=== PATIENT | male | born 1995 | race Caucasian/White ===

== ENCOUNTER 2019-07-19 15:01 | Emergency (ER) | payer MEDICAID, SELFPAY ==
[2019-07-19 15:02] VITALS: BP 146/100; PULSE 102; RESP 16; TEMP 36.4; O2SAT 93; BMI 38.3
--- NOTE | 2019-07-19 15:34 | EKG12_ITS ---
Test Reason : PALPS Blood Pressure : / mmHG Vent. Rate : 102 BPM Atrial Rate : 102 BPM P-R Int : 160 ms QRS Dur : 090 ms QT Int : 354 ms P-R-T Axes : 084 002 -33 degrees QTc Int : 461 ms Sinus tachycardia Possible Left atrial enlargement Nonspecific T wave abnormality Abnormal ECG Confirmed by CLAIR IRVIN, VIKAS ([id number]), news assignment editor REBECCA PARK ([id number]) on 07/20/2019 9:25:33 AM Referred By: ANTONIA Confirmed By:VIKAS SELF MD
--- NOTE | 2019-07-19 15:37 | ED.DCSUM_ITS ---
- ER Visit Summary Date of Service: 07/19/19 Chief Complaint: Palpitations History of Present Illness: The patient is a 23 M who tells me that yesterday after smoking marijuana that he bought from a street dealer he began to experience a fluttering heart skipping sensation. This has been pretty much continuous since that time. This morning when he woke he felt short of breath. States he has a history of depression anxiety and bipolar disorder. He states that typically marijuana helps calm him down. Patient went to his primary care physician's office was noted that his heart rate was around 100 and his pulse ox was around 90 to 91% on room air. When asked what he did over the weekend the patient states that he pretty much drink heavily. He did work on Friday during the day. Physical Examination: Afebrile vital signs are stable. Noted heart rate in triage at 102. Gen: Well-nourished well-developed Head: Normocephalic atraumatic Eyes: Perrl EOMI ENT: TMs clear no rhinorrhea moist mucous membranes Neck: Supple no lymphadenopathy no JVD nontender CVS: Regular rate tachycardic rhythm no murmurs normal S1-S2 Respiratory: No distress clear to auscultation bilaterally chest nontender Abdomen: Soft nontender nondistended normal bowel sounds no masses Back: Nontender Extremity: Nontender no edema Skin: Normal color no rash Neuro: alert orientated ?3 CN II-XII intact normal strength sensation reflexes gait cerebellar Psych: Patient appears anxious does not make sense that he Test Results: EKG shows sinus tachycardia rate of 102. CBC chemistries were negative. Troponin negative d-dimer negative. Magnesium 2.2. TSH is 1.28. Chest x-ray is negative. Urine toxicology was obtained. Emergency Department Course and Treatment: Patient was placed on the monitor. He has had some heart rates down into the low 90s. His pulse ox has been in the mid 90s. At this point this could be a little holiday heart. Could he have ingested something from the marijuana that it was cut with or laced with that we are not detecting. At this point I do not see anything acutely wrong. Patient was encouraged to hydrate hydrate and stay away from any alcohol or cannabis. Impression: 1. Palpitations This note was generated with [employer] dictation software. It may contain incorrect words, spelling, and punctuation that were not noted in review of the chart prior to signing ED Disposition - Plan for ED Patient: Disposition: Home or Assisted Living Instructions: Palpitations Referrals: Bean Vale MD [Primary Care Provider] - 3-5 Days if not improving
--- NOTE | 2019-07-19 15:50 | RAD_ITS ---
STUDY: X-RAY CHEST REASON FOR EXAM: Male, 23 years old. Palpitations, shortness of breath TECHNIQUE: PA and lateral views of the chest. COMPARISON: None. FINDINGS: back padder leads are present. The lungs are clear and expanded. There is no demonstrated pleural abnormality. Normal size heart. Normal mediastinum and callie. Normal visualized pulmonary arteries. Normal visualized aortic arch and descending thoracic aorta. Normal visualized thoracic spine. Normal visualized ribs, clavicles, and shoulders. There is no demonstrated abnormality of the visualized soft tissue structures of the upper abdomen. RAD/Chest PA and Lateral IMPRESSION: Normal x-ray examination of the chest. Electronically Signed: Babatunde Miner MD at 16:19 EDT , Service support ,
[2019-07-19 16:01] VITALS: PULSE 111
[2019-07-19 16:02] LABS: Absolute Lymphocyte Count 1.75 X10^3/uL (0.83-4.51); Absolute Neutrophil Count 5.9 X10^3/uL (2.0-7.7); Basophil# 0.06 X10^3/uL; Basophil% 0.7 % (0-1); Eosinophils% 2.3 % (0-5); Hematocrit 44.4 % (40-54); Hemoglobin 15.1 g/dL (13.0-16.5); Lymphocyte # 1.75 X10^3/ul (4.0); Lymphocyte % 20.2 % (19-41); Mean Corpuscular Hgb 31.9 pg (27.0-32.0); Mean Corpuscular Volume 93.7 fL (80-94); Mean Platelet Vol. 10.9 fl (6.2-12.0); Monocyte# 0.74 X10^3/uL; Monocyte% 8.5 % (0-10); NRBC Flagged by Analyzer 0 % (0-5); Neutrophil # 5.87 X10^3/uL (2.7-7.7); Neutrophil % 67.6 % (47-70); Platelet Count 182 K/mm3 (150-450); RBC Distribution Width CV 11.5 % (11.6-14.6); RBC Distribution Width SD 39.8 fl (35.1-43.9); Red Blood Count 4.74 M/mm3 (4.6-6.2); White Blood Count 8.7 K/mm3 (4.4-11.0)
[2019-07-19 16:16] LABS: Anion Gap 5 (5-15); BUN 11 mg/dL (7-18); BUN/Creat Ratio 12.9 RATIO (10-20); Calcium,Total 8.6 mg/dL (8.5-10.1); Chloride 108 mmol/L (98-107); Creatinine, Serum 0.85 mg/dL (0.70-1.30); D-Dimer Quantitative (DVT/PE) < 0.27 FEU/ug/m (0.27-0.49); EST Glomerular Filtration Rate 116 mL/min (>60); Est Glom Filt Rate - Afr Amer 140 mL/min (>60); Glucose 96 mg/dL (74-106); Magnesium 2.2 mg/dL (1.6-2.6); Potassium 4.1 mmol/L (3.5-5.1); Sodium Level 140 mmol/L (136-145); Thyroid Stim Hormone (TSH) 1.28 uIU/mL (0.358-3.74)
[2019-07-19 16:34] LABS: Amphetamine Urine VISTA NEGATIVE (<1000 ng/mL); Barbiturate Urine VISTA NEGATIVE (< 200 ng/mL); Benzodiazepine Urine VISTA NEGATIVE (< 200 ng/mL); Cocaine Urine VISTA NEGATIVE (< 300 ng/mL); Ecstacy Urine VISTA NEGATIVE (< 500 ng/mL); Methadone Urine VISTA NEGATIVE (< 300 ng/mL); PCP Urine VISTA NEGATIVE (< 25 ng/mL); THC Urine VISTA POSITIVE (< 50 ng/mL); Vista UDS pH Range 6
[2019-07-19] MEDS: LORazepam 2 MG/ML Syringe 0.5 MG IV (16:49)
[2019-07-19 17:08] VITALS: BP 137/99; PULSE 101; RESP 14; O2SAT 99
== END 2019-07-19 17:14 | disposition home or self-care (01) ==
PROVIDERS: Emergency Provider Emergency Medicine; Family Provider Family Medicine; PCP Family Medicine
DX: R00.2 Palpitations (principal); F31.9 Bipolar disorder, unspecified; F41.9 Anxiety disorder, unspecified; Z79.899 Other long term (current) drug therapy
CPT/HCPCS: 71046; 80048; 80307; 83735; 84443; 84484; 85025; 85379; 93005; 96374; 99284; A4216

== ENCOUNTER 2019-08-17 08:36 | Emergency (ER) | payer MEDICAID, SELFPAY ==
[2019-08-17 08:37] VITALS: BP 165/119; PULSE 121; RESP 18; TEMP 36.1; O2SAT 99; BMI 39.2
--- NOTE | 2019-08-17 09:00 | EKG12_ITS ---
Test Reason : PALPS Blood Pressure : / mmHG Vent. Rate : 113 BPM Atrial Rate : 113 BPM P-R Int : 154 ms QRS Dur : 094 ms QT Int : 358 ms P-R-T Axes : 033 -09 075 degrees QTc Int : 491 ms Sinus tachycardia Nonspecific T wave abnormality Abnormal ECG Confirmed by GENTRY LORA ([id number]), avid editor BINDU JORGE ([id number]) on 08/23/2019 3:45:51 PM Referred By: TU Confirmed By:GENTRY LORA
[2019-08-17] MEDS: Ondansetron 4 MG/2 ML Vial IV (09:28)
--- NOTE | 2019-08-17 09:28 | ED.VIS.GEN ---
History of Present Illness Chief Complaint: Palpitations Informant: Patient, Family Onset: Today - 399 Context: Sudden Onset Timing: Continuous Quality: Fluttering, pinching sensation Location: Anterior chest Current Severity: Mild Maximum Severity: Moderate Worsened by: Nothing Relieved by: Nothing Associated Symptoms: Nausea and diaphoresis Narrative: Patient is a 23-year-old male presents with fluttering of his chest, pinching sensation that is intermittent without radiation associated with nausea and diaphoresis. Onset at 0. Patient admits to smoking marijuana yesterday day. He had similar presentation in July. He denies fever, chills night sweats. He denies ocular, visual auditory symptoms. Denies trouble with speech or swallowing. He denies URI symptoms. He denies shortness of breath or cough. He does report abdominal distention and sensation of fullness. He denies vomiting. He denies black or maroon stool and diarrhea. He denies urologic symptoms. He denies paresthesia, anesthesia or motor weakness. Patient denies leg pain, swelling or discoloration. There is no history of PE or DVT. Prior similar symptoms: Yes - July 19, 2019 Recent Illness/Hospitalization: Yes - July 19, 2019 - Past Medical History (1) No significant past medical history Status: Acute Past Medical History - Allergies and Home Meds Allergies/Adverse Reactions: Allergies No Known Allergies Allergy (Verified 08/17/19 09:17) Primary Care Physician: Bean Vale MD [Primary Care Provider] - Prior records reviewed: Yes - Psychiatric disorder Surgical History: no surgical history Lives: With Family Smoking Status: Never smoker Alcohol: Heavy - 6 to 12 pack weekdays greater on weekends Drugs: Marijuana Review of Systems General: Reports: Malaise, Sweats. Denies: Chills, Fever Eyes: Denies: Visual changes - bilaterally, Blurred Vision - bilaterally, Diplopia ENT: Reports: - - Ear pain, decreased hearing or tinnitus. Denies: Bilateral ear pain, Rhinorrhea, Sore throat Cardiovascular: Reports: Chest pain, Palpitations. Denies: Heart racing Respiratory: Reports: Dyspnea. Denies: Cough, Sputum, Dyspnea on exertion, Orthopnea, Paroxysmal nocturnal dyspnea Gastrointestinal: Reports: Abdominal pain, Nausea. Denies: Vomiting, Diarrhea, Constipation, Melena, Hematochezia Genitourinary: Denies: Dysuria, Hematuria, Frequency Musculoskeletal: Denies: Myalgias, Arthralgias, Neck pain, Back pain, Swelling, Extremity Pain, -, - Skin: Denies: Rash, Wounds Neurological: Denies: Headache, Weakness, Numbness Psych: Reports: Depression Endocrine: Denies: Polyuria, Polydipsia Hematologic: Denies: Easy bruising, Easy bleeding Physical Exam Vital Signs/Narrative: Vital Signs Temp Pulse Resp BP Pulse Ox 08/17/19 08:37 97 F L 121 H 18 165/119 H 99 Inital Vital Signs reviewed: Yes General: Well nourished, Well developed, Obese, No Acute Distress Head: Normocephalic, Atraumatic Eyes: Perrl, EOMI. Negative for: Pale conjunctiva, Scleral icterus ENT: Moist mucous membranes, No rhinorrhea, TM's clear Neck: Supple, Nontender, No lymphadenopathy, No JVD Cardiovascular: Regular rate, Regular rhythm, No murmurs, Normal S1, Normal S2, Tachycardia Respiratory: No distress, CTA bilaterally, Chest nontender Abdomen: Soft, No masses, Tender, Hypoactive bowel sounds. Negative for: Nontender, Nondistended, Normal bowel sounds, Guarding, Rebound tenderness, Ventral hernia, Umbilical hernia, Rovsig's sign, Palacio's sign Back: Nontender, Normal Inspection Extremities: Nontender, No edema Skin: Normal color, No rash, Diaphoresis, No Trauma. Negative for: Cyanosis, Jaundice Neurological: Alert, Oriented x3, Cranial nerves II-XII grossly intact, Normal Strength, Normal Sensation Psychological: - - Affect is restricted Diagnostic/Tx/Re-eval Chest X-Ray - ED: 2 View, Read by ED Physician, Normal, Heart, Lungs, Mediastinum, Bony Structures, No Acute Disease, Chronic Changes, - - The difference in technique/penetration of the film. Impressions Chest X-Ray 08/17/19 09:30 IMPRESSION: No acute cardiopulmonary pathology and no significant interval change when compared to 07/19/2019. Electronically Signed: Dayne Gar MD at 9:49 EDT , Service support , 08/17/19 09:30 Chest PA and Lateral [RAD] Stat Laboratory Results 08/17/19 08/17/19 08/17/19 09:12 09:12 09:30 WBC 9.0 RBC 5.10 Hgb 16.4 Hct 47.1 MCV 92.4 MCH 32.2 H MCHC 34.8 RDW Std Deviation 39.8 RDW Coeff of Sumit 11.8 Plt Count 208 MPV 10.8 Immature Gran % (Auto) 0.400 Neut % (Auto) 76.7 H Lymph % (Auto) 13.3 L [place] % (Auto) 7.3 Eos % (Auto) 1.7 Baso % (Auto) 0.6 Absolute Neuts (auto) 6.9 Absolute Lymphs (auto) 1.20 Nucleated RBC % 0 Sodium 142 Potassium 4.4 Chloride 107 Carbon Dioxide 26.0 Anion Gap 9 BUN 13 Creatinine 0.80 Estim Creat Clear Calc 145.75 Est GFR (MDRD) Af Amer 150 Est GFR (MDRD) Non-Af 124 BUN/Creatinine Ratio 16.2 Glucose 101 Calcium 8.9 Total Bilirubin 0.70 AST 55 H ALT 84 H Alkaline Phosphatase 82 Troponin I < 0.015 Total Protein 7.6 Albumin 3.9 Globulin 3.7 Albumin/Globulin Ratio 1.1 Urine Opiates Screen NEGATIVE Urine Methadone Screen NEGATIVE Ur Barbiturates Screen NEGATIVE Ur Phencyclidine Scrn NEGATIVE Ur Amphetamines Screen NEGATIVE U Methamphetamin-MDMA NEGATIVE U Benzodiazepines Scrn NEGATIVE Urine Cocaine Screen NEGATIVE U Cannabinoids Screen POSITIVE H Ur Drug Screen Comment - EKG Initial EKG Interpretation: Sinus Tachycardia - Ventricular rate is 113. DE interval 154 ms. QS duration 94 ms. QT interval is 3 and 58 ms. There is evidence of an ossific ST-T wave changes which is minimal. [place] is normal. - Medical Decision Making With history of heavy alcohol use and marijuana use need to entertain possibility of paroxysmal atrial fibrillation secondary to alcoholic cardia myopathy. EKG was obtained as well as appropriate blood work. He was placed on a monitor. IV was established. He received Zofran for his nausea. Differential diagnosis includes alcoholic cardiomyopathy, proximal H fibrillation, noncardiac chest pain, anxiety reaction, adverse response to illicit drug use. ED Disposition - Plan for ED Patient: Disposition: Home or Assisted Living Diagnosis: Sinus tachycardia by electrocardiogram, Chest pain, Marijuana smoker, Elevated liver enzymes, Heavy alcohol use Instructions: Pat (P.A.T.), Signs of Addiction: Problem Use Referrals: Bean Vale MD [Primary Care Provider] - [facility] [STAFF PHYSICIAN] - As soon as possible Additional Instructions: Do not discontinued drinking abruptly. You can slowly decrease until you are seen; otherwise, you will go into alcohol withdrawal, which is life-threatening.
[2019-08-17 09:29] VITALS: BP 155/99; PULSE 109; RESP 20; O2SAT 94
[2019-08-17 09:30] LABS: Absolute Neutrophil Count 6.9 X10^3/uL (2.0-7.7); Basophil# 0.05 X10^3/uL; Basophil% 0.6 % (0-1); Eosinophil# 0.15 X10^3/uL; Eosinophils% 1.7 % (0-5); Hematocrit 47.1 % (40-54); Hemoglobin 16.4 g/dL (13.0-16.5); Lymphocyte % 13.3 % (19-41); Mean Corp Hgb Conc 34.8 g/dL (32-36); Mean Corpuscular Hgb 32.2 pg (27.0-32.0); Mean Corpuscular Volume 92.4 fL (80-94); Mean Platelet Vol. 10.8 fl (6.2-12.0); Monocyte# 0.66 X10^3/uL; Monocyte% 7.3 % (0-10); NRBC Flagged by Analyzer 0 % (0-5); Neutrophil # 6.89 X10^3/uL (2.7-7.7); Neutrophil % 76.7 % (47-70); Platelet Count 208 K/mm3 (150-450); RBC Distribution Width CV 11.8 % (11.6-14.6); RBC Distribution Width SD 39.8 fl (35.1-43.9)
--- NOTE | 2019-08-17 09:30 | RAD_ITS ---
STUDY: X-RAY CHEST REASON FOR EXAM: Male, 23 years old. Shortness of breath. Chest pain. Fluttering. Nausea. TECHNIQUE: PA and lateral views of. COMPARISON: 07/19/2019. FINDINGS: Small calcified granuloma in the right upper lobe is unchanged. No suspicious pulmonary nodules or infiltrates. There is no demonstrated pleural abnormality. Normal size heart. Normal mediastinum and callie. Normal visualized pulmonary arteries. Normal visualized aortic arch and descending thoracic aorta. Minimal posterior wedging of T8, T9 and T10 vertebral bodies are presumably developmental. Normal visualized ribs, clavicles, and shoulders. There is no demonstrated abnormality of the visualized soft tissue structures of the upper abdomen. RAD/Chest PA and Lateral IMPRESSION: No acute cardiopulmonary pathology and no significant interval change when compared to 07/19/2019. Electronically Signed: Dayne Gar MD at 9:49 EDT , Service support ,
[2019-08-17 09:47] LABS: Amphetamine Urine VISTA NEGATIVE (<1000 ng/mL); Barbiturate Urine VISTA NEGATIVE (< 200 ng/mL); Benzodiazepine Urine VISTA NEGATIVE (< 200 ng/mL); Cocaine Urine VISTA NEGATIVE (< 300 ng/mL); Ecstacy Urine VISTA NEGATIVE (< 500 ng/mL); Methadone Urine VISTA NEGATIVE (< 300 ng/mL); PCP Urine VISTA NEGATIVE (< 25 ng/mL); THC Urine VISTA POSITIVE (< 50 ng/mL); Vista UDS pH Range 5
[2019-08-17 09:52] LABS: ALB/GLOB Ratio 1.1 RATIO (0.9-2.4); AST(SGOT) 55 U/L (15-37); Alanine Aminotransfer ALT/SGPT 84 U/L (16-61); Albumin, Serum 3.9 g/dL (3.2-5.0); Alkaline Phosphatase 82 U/L (45-117); Anion Gap 9 (5-15); BUN 13 mg/dL (7-18); BUN/Creat Ratio 16.2 RATIO (10-20); Calcium,Total 8.9 mg/dL (8.5-10.1); Chloride 107 mmol/L (98-107); EST Glomerular Filtration Rate 124 mL/min (>60); Est Glom Filt Rate - Afr Amer 150 mL/min (>60); Estimated Creatinine Clearance 145.75 ml/min; Globulin 3.7 g/dL (2.2-4.2); Glucose 101 mg/dL (74-106); Potassium 4.4 mmol/L (3.5-5.1); Protein, Total 7.6 g/dL (6.4-8.2); Sodium Level 142 mmol/L (136-145)
[2019-08-17 11:19] VITALS: BP 151/99; PULSE 115; RESP 18; O2SAT 95
== END 2019-08-17 11:21 | disposition home or self-care (01) ==
PROVIDERS: Emergency Provider Emergency Medicine; Family Provider Family Medicine; PCP Family Medicine
DX: R07.9 Chest pain, unspecified (principal); F12.90 Cannabis use, unspecified, uncomplicated; R74.8 Abnormal levels of other serum enzymes; R00.0 Tachycardia, unspecified; E66.9 Obesity, unspecified; Z72.89 Other problems related to lifestyle
CPT/HCPCS: 71046; 80053; 80307; 84484; 85025; 93005; 96374; 99284; A4216; J2405

== ENCOUNTER 2019-09-16 11:33 | Inpatient (IN) | payer MEDICAID, SELFPAY ==
[2019-09-16] VITALS (8 sets, daily range): BP systolic 118–140; BP diastolic 67–106; PULSE 112–129; RESP 16–20; TEMP 36.6–36.9; O2SAT 94–98; BMI 39.7; BMI 38.1; BMI 38.2
--- NOTE | 2019-09-16 12:23 | RAD_ITS ---
STUDY: X-RAY CHEST REASON FOR EXAM: Male, 23 years old. Shortness of breath. Tachycardia. TECHNIQUE: Single AP portable view of the chest. COMPARISON: Comparison is made with prior study dated August 17, 2019. FINDINGS: EKG electrodes are seen. The lungs are clear and expanded. There is no demonstrated pleural abnormality. There is moderate cardiac enlargement. Normal mediastinum and callie. Normal visualized pulmonary arteries. Normal visualized aortic arch and descending thoracic aorta. Normal visualized thoracic spine. Normal visualized ribs, clavicles, and shoulders. There is no demonstrated abnormality of the visualized soft tissue structures of the upper abdomen. RAD/Chest 1 View (Portable) IMPRESSION: Moderate cardiomegaly. Electronically Signed: Barrington Norton, at 13:24 EST , Service support ,
--- NOTE | 2019-09-16 12:24 | EKG12_ITS ---
Test Reason : PALPS Blood Pressure : / mmHG Vent. Rate : 113 BPM Atrial Rate : 113 BPM P-R Int : 170 ms QRS Dur : 092 ms QT Int : 340 ms P-R-T Axes : 038 004 -11 degrees QTc Int : 466 ms Sinus tachycardia Nonspecific T wave abnormality Abnormal ECG Confirmed by CLAIR IRVIN, VIKAS ([id number]), cut off tender glass NOE B[place] ([id number]) on 09/21/2019 2:33:29 PM Referred By: MAURO/AMADEO Confirmed By:VIKAS SELF MD
[2019-09-16] MEDS: LORazepam 1 MG Tablet PO (12:39)
[2019-09-16 12:42] LABS: International Normalized Ratio 1.3; Prothrombin Time (Protime)PT. 15.9 SECONDS (11.7-14.9)
[2019-09-16 12:43] LABS: Partial Thromboplast Time 30.9 Seconds (24.1-36.2)
[2019-09-16 12:45] LABS: Absolute Lymphocyte Count 1.61 X10^3/uL (0.83-4.51); Absolute Neutrophil Count 5.9 X10^3/uL (2.0-7.7); Basophil# 0.06 X10^3/uL; Basophil% 0.7 % (0-1); Eosinophil# 0.32 X10^3/uL; Eosinophils% 3.7 % (0-5); Hematocrit 39.5 % (40-54); Lymphocyte # 1.61 X10^3/ul (4.0); Lymphocyte % 18.5 % (19-41); Mean Corp Hgb Conc 32.9 g/dL (32-36); Mean Corpuscular Hgb 32.4 pg (27.0-32.0); Mean Corpuscular Volume 98.5 fL (80-94); Mean Platelet Vol. 11.4 fl (6.2-12.0); Monocyte# 0.81 X10^3/uL; Monocyte% 9.3 % (0-10); NRBC Flagged by Analyzer 0 % (0-5); Neutrophil # 5.87 X10^3/uL (2.7-7.7); Neutrophil % 67.3 % (47-70); Platelet Count 241 K/mm3 (150-450); RBC Distribution Width CV 12.8 % (11.6-14.6); RBC Distribution Width SD 45.8 fl (35.1-43.9); Red Blood Count 4.01 M/mm3 (4.6-6.2); White Blood Count 8.7 K/mm3 (4.4-11.0)
[2019-09-16 12:50] LABS: Bacteria 0 SEEN /hpf (None Seen); Mucous, Urine 0 SEEN /hpf (<or=2+); Red Blood Cells-Urine 0 SEEN /hpf (0-5); Squamous Epithelial Cells - UA 0 SEEN /hpf (0-5); White Blood Cells 0 SEEN /hpf (0-5)
[2019-09-16 12:50] LABS: AST(SGOT) 73 U/L (15-37); Alanine Aminotransfer ALT/SGPT 206 U/L (16-61); Albumin, Serum 2.8 g/dL (3.2-5.0); Alkaline Phosphatase 51 U/L (45-117); Anion Gap 9 (5-15); BUN 17 mg/dL (7-18); Bilirubin, Direct 0.57 mg/dL (0.00-0.30); Calcium,Total 8.2 mg/dL (8.5-10.1); Chloride 111 mmol/L (98-107); Creatinine, Serum 1.06 mg/dL (0.70-1.30); EST Glomerular Filtration Rate 90 mL/min (>60); Est Glom Filt Rate - Afr Amer 109 mL/min (>60); Estimated Creatinine Clearance 113.46 ml/min; Globulin 3.1 g/dL (2.2-4.2); Glucose 137 mg/dL (74-106); Lipase 128 U/L (73-393); Potassium 3.7 mmol/L (3.5-5.1); Protein, Total 5.9 g/dL (6.4-8.2); Sodium Level 143 mmol/L (136-145)
[2019-09-16] MEDS: Thiamine Hydrochloride 100 MG Tablet PO (12:50)
[2019-09-16] MEDS: Folic Acid 1 MG Tablet 2 MG PO (12:50)
[2019-09-16 13:16] LABS: Color, Urine Yellow (Yellow); Glucose, Dipstick Normal (Normal); Ketone-Dipstick 5 mg/dl (Negative); Leukocyte Esterase-Dipstick Negative /ul (Negative); Nitrite-Dipstick Negative (Negative); Occult Blood-Urine Negative /ul (Negative); Protein-Dipstick 30 mg/dl (Negative); Urine Clarity Clear (Clear); Urine Urobilinogen 4 mg/dl (Normal)
[2019-09-16 13:18] LABS: Urine Bilirubin Dipstick 1 mg/dL (Negative)
[2019-09-16 13:28] LABS: Lactic Acid 1.4 mmol/L (0.4-2.0)
--- NOTE | 2019-09-16 15:23 | ED.VISSUMM ---
- ER Visit Summary Date of Service: 09/16/19 Chief Complaint: Shortness of breath History of Present Illness: The patient is a 23 M who presents the emergency room with shortness of breath. Patient has been seen in July in the beginning of August for palpitations. He followed up with primary care recently and echocardiogram was scheduled for today. During the echocardiogram was reported to me (though I do not have access to the report or the images as it is done through a different hospital system) but he had an ejection fraction of 10 to 15% 3+ mitral valve regurgitation. Patient notes that he is having difficulty ambulating due to shortness of breath. He notes that he is a heavy drinker but has not drank for several days. He denies any piloerection nausea vomiting headaches hallucinations. He denies any orthopnea or leg swelling. Mom about possible heart disease including congestive heart failure. Physical Examination: Afebrile 140/89 heart rate 121 respirations are 26 pulse ox is 96% on room air Gen: Well-nourished well-developed Head: Normocephalic atraumatic Eyes: Perrl EOMI ENT: TMs clear no rhinorrhea moist mucous membranes Neck: Supple no lymphadenopathy no JVD nontender CVS: Regular rate rhythm 2+ systolic murmur Respiratory: Patient is tachypnea but not in distress clear to auscultation bilaterally chest nontender Abdomen: Soft nontender nondistended normal bowel sounds no masses Back: Nontender Extremity: Nontender no edema Skin: Normal color no rash Neuro: alert orientated ?3 CN II-XII intact normal strength sensation Psych: Normal affect normal mood Test Results: EKG sinus at a rate of 113. White count 8.7 hemoglobin 13. Troponin 0 0.028. Nitric peptide 1295. Lactic acid 1.5. ALT 206 AST 73. Total bilirubin 1.5 chest x-ray shows no overt failure but cardiomegaly Emergency Department Course and Treatment: Patient received thiamine folate dose of Ativan. I spoke with [facility] cardiology at [facility] (per patient request) the patient has been accepted for transfer. We talked about administering medications for heart rate however there may be a component of withdrawal at this time they would like to hold. We are currently awaiting bed assignment. Impression: 1. Acute decompensated heart failure 2. Alcoholism This note was generated with [employer] software. It may contain incorrect words, spelling, and punctuation that were not noted in review of the chart prior to signing <Mc Pinon - Last Filed: 09/16/19 16:24> - ER Visit Summary Date of Service: 09/16/19 Emergency Department Course and Treatment: Care of the patient was turned over to me. Patient is pending transfer to [facility]. [facility] called and stated they probably will not have a bed until tomorrow. At that point they requested to admit the patient here until [facility] has a bed available for him. Case was discussed with the hospitalist as well as woods manager. Patient will be admitted here until he can be transferred to [facility] tomorrow. Disposition: Admit to hospital Impression: 1. Acute decompensated heart failure 2. Alcoholism This note was generated with [employer] dictation software. It may contain incorrect words, spelling, and punctuation that were not noted in review of the chart prior to signing <Grey Malhotra - Last Filed: 09/16/19 22:36> ED Disposition <Mc Pinon - Last Filed: 09/16/19 16:24> <Grey Malhotra - Last Filed: 09/16/19 22:36> - Plan for ED Patient: Disposition: Acute Care [facility] Diagnosis: Acute decompensated heart failure, Alcoholism Referrals: Bean Vale MD [Primary Care Provider] -
--- NOTE | 2019-09-16 18:58 | ED.RN ---
pt offered food, pt declined food at this time. mother did state she would grab him something from [employer].
--- NOTE | 2019-09-16 19:11 | ED.RN ---
YOSSI WITH [facility] TRANSFER LINE [facility]ST TO ADMIT IN YOUR FACILITY, IT COULD BE UNTIL TOMORROW. WE HAVE A CENSUS.
--- NOTE | 2019-09-16 21:34 | ED.RN ---
family made aware of delay in admission to [facility]. family understands. night time medications ordered at this time
--- NOTE | 2019-09-16 21:34 | PCM.HP.STD ---
Problem List (1) Acute decompensated heart failure Status: Acute (2) Alcoholism Status: Acute History of Present Illness Date of Admission: 09/16/19 Chief Complaint: Abnormal echocardiogram The patient is a 23 year old M with a significant story of depression; anxiety; bipolar disorder and alcoholism who presented to emergency department because of an abnormal echocardiogram. From notes from emergency department doctor patient ejection fraction was at 10 to 15% and with 3+ mitral valve regurgitation. Echocardiogram was done on the same day of presentation. If his symptoms is 2 to 3 weeks of shortness of breath; nausea; vomiting; and racing of his heart. He denies orthopnea. He reports paroxysmal nocturnal dyspnea. He denies any swelling. He reported that his previous weight was 271 pounds but about 4 days ago his weight was 279 and now his weight is back down to 233 pounds. Patient wanted to go to [facility] so the case was discussed with [facility] and the patient was accepted. However because there were no beds patient will stay at our hospital until beds become available at [facility]. Past Medical History Medical History: Medical History (Last Updated 09/17/19 @ 07:47 by Refugio Dempsey MD) Depression (Chronic) F32.9 Alcoholism F10.20 Anxiety F41.9 Allergies No Known Allergies Allergy (Verified 09/16/19 11:46) Home Medications: Ambulatory Orders Medication Instructions Recorded Hydroxyzine Pamoate [Vistaril] 50 - 100 mg PO TID PRN 08/17/19 Lamotrigine [Lamictal] 300 mg PO DAILY 08/17/19 Citalopram [Celexa] 20 mg PO DAILY 09/16/19 Omeprazole 1 tab PO QHS 09/16/19 Risperidone 0.5 tab PO QHS 09/16/19 proMETHazine tablet [Phenergan 25 mg PO Q6H PRN PRN 09/16/19 tablet] Surgical History: - - 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 Last time he drank was about 2 to 3 days ago. - *Family History Maternal History Items: - - Denies maternal medical history from mother. Her mother was adopted and does not know any other medical history. Paternal History Items: Heart Disease Review of Systems Constitutional: Denies: Chills, Fever, Weight Change HEENT: Denies: Head Aches, Sinus Congestion, Sinus Drainage Cardiovascular: Reports: Palpitations, Paroxysmal Noc. Dyspnea. Denies: Chest Pain, Orthopnea Respiratory: Reports: Shortness of Breath. Denies: Cough Gastrointestinal: Reports: Nausea, Vomiting. Denies: Abdominal Pain Genitourinary: Denies: Dysuria Musculoskeletal: Denies: Joint Pain, Joint Tenderness Skin: Denies: Rash, Wounds Neurological: Denies: Numbness, Tingling, Focal weakness Psychiatric: Denies: Anxiety, Depression, Homicidal Ideations, Suicidal Ideations Hematologic/ Lymphatic: Denies: Easy Bruising, Easy Bleeding VTE Information - Inpt Only VTE Present on Admission: No VTE Mechan Device Prophylaxis: None VTE Pharm Prophylaxis ordered?: No Reason prophylaxis not ordered:: Treatment Not Indicated - Low risk encouraged to ambulate. Patient Problems: Active and Suspected Problems Acute decompensated heart failure (Acute) Alcoholism (Acute) - Physical Exam Vitals/I&O's: Vital Signs Temp Pulse Resp BP Pulse Ox 97.8 F 124 H 16 131/101 H 94 09/16/19 11:34 09/16/19 21:00 09/16/19 13:02 09/16/19 21:00 09/16/19 21:00 Oxygen Delivery Method Room Air Weight: 129.4 kg Body Mass Index (BMI) 39.7 General: Alert, Oriented x3, Cooperative HEENT: Atraumatic, PERRLA, EOMI, Normocephalic Neck: Supple, No JVD, Negative Carotid Bruits Lungs: No rhonchi, No wheeze, Rales - Bibasilar Cardiovascular: No murmurs, Tachycardic Abdomen: Bowel Sounds Present, Soft, Non Tender Extremities: No edema, Capillary Refill Less than 3 Seconds Skin: No rashes, No breakdown Musculoskeletal: No Tenderness to Palpation of Joints or Extremities Neurological: Cranial nerves II-XII grossly intact Psych/Mental Status: Normal Affect, Appropriate Laboratory Results 09/16/19 11:36: WBC 8.7, RBC 4.01 L, Hgb 13.0, Hct 39.5 L, MCV 98.5 H, MCH 32.4 H, MCHC 32.9, RDW Std Deviation 45.8 H, RDW Coeff of Sumit 12.8, Plt Count 241, MPV 11.4, Immature Gran % (Auto) 0.500, Neut % (Auto) 67.3, Lymph % (Auto) 18.5 L, Lown[place] % (Auto) 9.3, Eos % (Auto) 3.7, Baso % (Auto) 0.7, Absolute Neuts (auto) 5.9, Absolute Lymphs (auto) 1.61, Nucleated RBC % 0 09/16/19 11:36: PT 15.9 H, INR 1.3, APTT 30.9 09/16/19 11:36: Sodium 143, Potassium 3.7, Chloride 111 H, Carbon Dioxide 23.0, Anion Gap 9, BUN 17, Creatinine 1.06, Estim Creat Clear Calc 113.46, Est GFR (MDRD) Af Amer 109, Est GFR (MDRD) Non-Af 90, BUN/Creatinine Ratio 16.0, Glucose 137 H, Calcium 8.2 L, Total Bilirubin 1.50 H, Direct Bilirubin 0.57 H, AST 73 H, ALT 206 H, Alkaline Phosphatase 51, Troponin I 0.028, Total Protein 5.9 L, Albumin 2.8 L, Globulin 3.1, Lipase 128 09/16/19 11:36: B-Natriuretic Peptide 1295.0 H 09/16/19 12:35: Lactic Acid 1.4 09/16/19 12:40: Urine Color Yellow, Urine Clarity Clear, Urine pH 5.0, Ur Specific [place] 1.020, Urine Protein 30 H, Urine Glucose (UA) Normal, Urine Ketones 5 H, Urine Occult Blood Negative, Urine Nitrite Negative, Urine Bilirubin 1 H, Urine Urobilinogen 4 H, Ur Leukocyte Esterase Negative, Urine RBC 0 SEEN, Urine WBC 0 SEEN, Ur Squamous Epith Cells 0 SEEN, Urine Bacteria 0 SEEN, Urine Mucus 0 SEEN Assessment/Plan All Active Problems Acute decompensated heart failure (Acute) Alcoholism (Acute) The patient is a 23 year old M with a significant story of depression; anxiety; bipolar disorder and alcoholism with an abnormal echocardiogram consistent with acute systolic heart failure Acute Systolic heart failure Reportedly outpatient echo showed an ejection fraction of 10 to 15% with 3+ mitral valve regurgitation. Etiology is unclear but with his history of alcoholism his heart failure could be due to alcoholism. We will check TSH Per Emergency department doctor heart rate medications were discussed with [facility] but [facility] thought that there may be a component of withdrawal so heart rate controlling medication should not be initiated. Will defer beta-rose marie to cardiology. Will start patient on low-dose lisinopril since his blood pressure can tolerate. Chest x-ray shows cardiomegaly with no obvious infiltrates. Will start patient on low-dose Lasix IV to see whether it may be of any benefit in improving his SOB. Placed on monitored bed at the PCU Weight on admission to the floor; and then daily Strict I&O's Emergency department labs reviewed showed elevated BNP Trend blood pressure Optimize potassium by giving 30 mEq of potassium x1 for potassium level of 3.7. Trend BMP. 2 g sodium diet Alcoholism Patient reported that he has been weaning himself off alcohol. Last time he drank was 2 to 3 days. Will put patient on CIWA protocol with Ativan; thiamine; multivitamin and folic acid Counselled Depression anxiety/bipolar Citalopram continued Hydroxyzine as needed continued DVT prophylaxis Low risk Ambulate Code Visit Inpatient E&M: 54724 Init Hosp L3
[2019-09-16] MEDS: lamoTRIgine 100 MG Tablet 300 MG PO (21:52)
[2019-09-16] MEDS: RisperiDONE 0.5 MG Tablet PO (21:52)
[2019-09-16] MEDS: Citalopram 20 MG Tablet PO (21:52)
[2019-09-16] MEDS: proMETHazine 25 MG Tablet PO (21:53)
[2019-09-16] MEDS: Pantoprazole Sodium 20 MG Tablet PO (21:53)
--- NOTE | 2019-09-16 23:56 | EKG12_ITS ---
Test Reason : CP ADMIT Blood Pressure : / mmHG Vent. Rate : 123 BPM Atrial Rate : 123 BPM P-R Int : 158 ms QRS Dur : 094 ms QT Int : 304 ms P-R-T Axes : 034 -01 015 degrees QTc Int : 435 ms Sinus tachycardia Nonspecific T wave abnormality Abnormal ECG When compared with ECG of 16-SEP-2019 11:57, MANUAL COMPARISON REQUIRED, DATA IS UNCONFIRMED Reconfirmed by CLAIR IRVIN, VIKAS ([id number]), publications editor BINDU JORGE ([id number]) on 09/22/2019 8:40:20 AM Referred By: DR AHMADI Confirmed By:VIKAS SELF MD
[2019-09-17] VITALS (15 sets, daily range): BP systolic 122–133; BP diastolic 73–95; PULSE 80–128; RESP 16–20; TEMP 36.5–37.1; O2SAT 93–100
[2019-09-17] MEDS: Furosemide 40 MG/4 ML Vial 20 MG IV ×2 (00:34→09:26)
[2019-09-17 00:53] LABS: Thyroid Stim Hormone (TSH) 1.89 uIU/mL (0.358-3.74)
[2019-09-17 06:37] LABS: Anion Gap 6 (5-15); BUN 14 mg/dL (7-18); BUN/Creat Ratio 13.3 RATIO (10-20); Calcium,Total 8.4 mg/dL (8.5-10.1); Chloride 110 mmol/L (98-107); Creatinine, Serum 1.05 mg/dL (0.70-1.30); EST Glomerular Filtration Rate 91 mL/min (>60); Est Glom Filt Rate - Afr Amer 110 mL/min (>60); Estimated Creatinine Clearance 114.54 ml/min; Glucose 106 mg/dL (74-106); Potassium 3.9 mmol/L (3.5-5.1); Sodium Level 143 mmol/L (136-145)
[2019-09-17] MEDS: LORazepam 1 MG Tablet 2 MG PO (09:08)
[2019-09-17] MEDS: Thiamine Hydrochloride 100 MG Tablet PO ×2 (09:25→16:54)
[2019-09-17] MEDS: Folic Acid 1 MG Tablet PO (09:25)
[2019-09-17] MEDS: Multivitamins,Ther W-Minerals Tablet 1 TABLET PO (09:25)
[2019-09-17] MEDS: Lisinopril 5 MG Tablet PO (09:26)
--- NOTE | 2019-09-17 12:45 | CASEMGMT ---
According to the [facility] website, the following are in-network tertiary facilities: [facility], [facility], [place], [facility], [facility], [facility], [facility], and . Harvinder BENJAMIN CM
--- NOTE | 2019-09-17 13:28 | ECHOD_ITS ---
Reason For Study: CHF Procedure This was a 2D Doppler, Color Flow transthoracic echocardiogram. The study was technically difficult. Exam performed portable in patient room. Left Ventricle Mildly dilated left ventricle. Probable ventricular non compaction with apical thrombus. The estimated ejection fraction is 15 %. Stage 3 diastolic dysfunction. There is severe global hypokinesis of the left ventricle. Right Ventricle Normal RV size. Normal systolic function. Atria The left atrium is severely enlarged. Normal right atrium. Mitral Valve Normal mitral valve. Mild-Moderate (1-2+) eccentric mitral valve insufficiency. Tricuspid Valve Normal tricuspid valve. Mild (1+) tricuspid valve insufficiency. Pulmonary artery systolic pressure is 34 mmHg. Aortic Valve Normal aortic valve. Trisinus/trileaflet aortic valve. Pulmonic Valve Normal pulmonic valve. Great Vessels Normal aortic root. The pulmonary artery is normal size. Normal inferior vena cava. Pericardium/Pleural No pericardial effusion. Medication Diluted definity 3ml given slow IV push to enhance endocardial definition. MMode/2D Measurements & Calculations LVIDd: 6.1 cm IVSd: 1.1 cm Ao root diam: 3.2 cm LVIDs: 5.7 cm LVPWd: 1.3 cm RVDd: 3.7 cm FS: 7.0 % LAV(MOD-bp): 103.9 ml LA A4 area: 31.1 cm2 LA dimension(2D): 5.5 cm LAV(MOD-bp) Indexed: 43.5 ml/m2 LAV(MOD-sp2): 89.8 ml LAV(MOD-sp4): 112.3 ml RA A4 area: 20.3 cm2 Time Measurements MV dec time: 0.11 sec Doppler Measurements & Calculations MV E max sandeep: 125.7 cm/sec Lat Peak E' Sandeep: 2.5 cm/sec Med Peak E' Sandeep: 2.9 cm/sec MV A max sandeep: 43.0 cm/sec E/E' lat: 50.4 E/E' med: 43.3 MV E/A: 2.9 Ao V2 max: 80.6 cm/sec LV V1 max: 52.4 cm/sec TR max sandeep: 273.3 cm/sec Ao max P.6 mmHg LV V1 max P.1 mmHg TR max P.0 mmHg Interpretation Summary Mildly dilated left ventricle. The estimated ejection fraction is 15 %. Probable ventricular non compaction with apical thrombus Stage 3 diastolic dysfunction. The left atrium is severely enlarged. Mild (1+) tricuspid valve insufficiency. Mild-Moderate (1-2+) eccentric mitral valve insufficiency. Contrast injection was performed. Ordering Physician: Kasandra Jenkins Referring Physician: Bean Vale Performed By: Chiquita Billy, DANICS, RVT
--- NOTE | 2019-09-17 13:32 | PCM.CONS.C ---
Reason for Consult Date of Consultation: 09/17/19 History of Present Illness: The patient is a 23 year old M with a significant story of depression; anxiety; bipolar disorder and alcoholism who presented to emergency department because of an abnormal echocardiogram. From notes from emergency department doctor patient ejection fraction was at 10 to 15% and with 3+ mitral valve regurgitation. Echocardiogram was done on the same day of presentation. Echo was done outside to [facility] system and is not available to us at this time. Patient complains of 2 to 3 weeks of shortness of breath, occasional episodes of chest discomfort with the last episode about 1 week back, palpitations. Patient wanted to be transferred to [facility] and was accepted there. However there is no bed available data yet. Patient stopped his alcohol use 2 days back. He weaned down before stopping. Review of systems: All systems reviewed. All others negative except that in the HPI. Past Medical History Allergies/Adverse Reactions: Allergies No Known Allergies Allergy (Verified 09/16/19 11:46) Home Medications: Ambulatory Orders Medication Instructions Recorded Hydroxyzine Pamoate [Vistaril] 50 - 100 mg PO TID PRN 08/17/19 Lamotrigine [Lamictal] 300 mg PO DAILY 08/17/19 Citalopram [Celexa] 20 mg PO DAILY 09/16/19 Omeprazole 1 tab PO QHS 09/16/19 Risperidone 0.5 tab PO QHS 09/16/19 proMETHazine tablet [Phenergan 25 mg PO Q6H PRN PRN 09/16/19 tablet] Past Medical History (Chronic Problems): Chronic Problems (Last Updated 09/17/19 @ 07:47 by Refugio Dempsey MD) Depression (Chronic) Surgical History: - - 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 Her mother was adopted and does not know any other medical history. Paternal History Items: Heart Disease Lives: With Family Smoking Status: Former smoker Alcohol: Heavy - Patient is weaning himself off. Last time he drank was about 2 to 3 days ago. Objective: Vital Signs Temp Pulse Resp BP Pulse Ox 98.0 F 124 H 16 132/95 H 93 09/17/19 09:04 09/17/19 11:10 09/17/19 09:04 09/17/19 09:04 09/17/19 09:04 Oxygen Delivery Method Room Air Weight: 268 lb 15.423 oz Body Mass Index (BMI) 38.1 Intake and Output for Last 24 Hours 09/15/19 09/16/19 09/17/19 23:59 23:59 23:59 Intake Total 120 / 120 Output Total 0 / 0 Balance 120 / 120 General: Awake, Alert, Oriented x 3 HEENT: Atraumatic Oral: Moist Mucosa Neck: Supple Lungs: Clear to auscultation Cardiovascular: Regular Rhythm Abdomen: Soft, Obese Extremities: No edema Skin: No Rashes Psych/Mental Status: Appropriate 09/17/19 05:40: Sodium 143, Potassium 3.9, Chloride 110 H, Carbon Dioxide 27.0, Anion Gap 6, BUN 14, Creatinine 1.05, Est GFR (MDRD) Af Amer 110, Est GFR (MDRD) Non-Af 91, BUN/Creatinine Ratio 13.3, Glucose 106, Calcium 8.4 L Rhythm: EKG: ECHO: Stress Test: Cardiac Cath: PCI: CT Surgery: Holter monitor: EPS: PPM: CXR: Chest CT Scan: Assessment/Plan 1. LV dysfunction: Patient has family history of cardia myopathy. This could be related to that. However he does have history of alcohol abuse and he could have alcohol induced cardiomyopathy also. He does have chest pain on and off and work-up for coronary artery disease may be an option as well even though he is only 23 years old. At this point since we have not been able to get the report of his echo done outside we will go ahead and repeat a 2D echo. It will be reasonable to start the patient on DANETTE inhibitor and beta-rose marie at this time. I think it is reasonable to give him IV Lasix for 1 or 2 days to see if this helps with his shortness of breath.
--- NOTE | 2019-09-17 13:36 | PN_ITS ---
Patient Problems: Active and Suspected Problems (Last Updated 09/17/19 @ 07:47 by Refugio Dempsey MD) Acute decompensated heart failure (Acute) Alcoholism (Acute) Subjective: The patient is a 23-year-old male with a past medical history of obesity, alcohol dependence, depression and amphetamine use who was sent to the [facility] ED on 09/16/19 because an OP ECHO done for SALDANA showed a 10% EF. Vital signs at admission were temperature 97.8, pulse rate 121, blood pressure 140/89, respiratory rate 16 and he was 96% saturated on room air. CBC was unremarkable. PT was mildly prolonged at 15.9. BMP showed a BUN of 17 and a creatinine of 1.06. Random blood sugar was 137. Lactic acid was 1.4. Total bilirubin was 1.5 with an AST of 73, ALT of 206 and a alkaline phosphatase of 51. BNP was 1295. UA had no white blood cells or red blood cells. Chest x-ray revealed cardiomegaly with no pleural effusions, no significant pulmonary vascular congestion and no infiltrates. He was admitted to a monitored bed on PCU and was started on Lasix 20 mg IV twice daily, lisinopril 5 mg daily and his regular medications were resumed. Pt denies swelling in his legs. He has SALDANA, orthopnea and PND. He tells me that he has not used Amphetamines in a few years but, he used them for 3-4 years. He started drinking in his teens and tells me that he drank 6 tall cans a day and occasional hard Liquor. He has been cutting down for the past few weeks and his last drink was 2-3 days ago. He has in the past had hallucinations with alcohol withdrawal but, he denies any hx of seizures with alcohol withdrawal. He has a hx of depression and sees a psychiatrist regularly. Risperidone was recently added to his drug regimen. He has been working at [employer]. The patient's mother would like him to go to the [facility] main campus and they will accept him but, they do not have a bed. Seen by Dr. Hercules today and I discussed with him. Will add Coreg. Increase the Lasix to 40 mg IV BID and continue the Lisinopril. - Physical Exam Vitals/I&O's: Vital Signs Temp Pulse Resp BP Pulse Ox 98.0 F 124 H 16 132/95 H 93 09/17/19 09:04 09/17/19 11:10 09/17/19 09:04 09/17/19 09:04 09/17/19 09:04 Oxygen Delivery Method Room Air Weight: 268 lb 15.423 oz Body Mass Index (BMI) 38.1 Intake and Output for Last 24 Hours 09/15/19 09/16/19 09/17/19 23:59 23:59 23:59 Intake Total 120 / 120 Output Total 0 / 0 Balance 120 / 120 General: Alert, Oriented x3, Cooperative, Well developed, Well nourished, - - He is tachypneic at 30 degrees in bed and this improved somewhat with elevation of the head of the bed. HEENT: Atraumatic, PERRLA, EOMI Oral: Dry Mucosa Neck: Supple, Negative Carotid Bruits, No Nodes, Trachea Midline, - - Carotid pulse volume is very weak. Lungs: Clear to auscultation, Normal air movement, Short of Breath, Tachypneic Cardiovascular: Regular Rhythm, Normal S1, Normal S2, No murmurs, No Gallop, Tachycardic Abdomen: Bowel Sounds Present, Soft, Non Tender, Non-Distended, Obese Extremities: No clubbing, No cyanosis, No edema, Diminished Peripheral Pulses Skin: No rashes, No breakdown Neurological: Cranial nerves II-XII grossly intact, Neuro grossly intact Psych/Mental Status: Appropriate, Flat Affect Laboratory Results 09/16/19 11:36: TSH 1.89 09/17/19 05:40: Sodium 143, Potassium 3.9, Chloride 110 H, Carbon Dioxide 27.0, Anion Gap 6, BUN 14, Creatinine 1.05, Estim Creat Clear Calc 114.54, Est GFR (MDRD) Af Amer 110, Est GFR (MDRD) Non-Af 91, BUN/Creatinine Ratio 13.3, Glucose 106, Calcium 8.4 L Current Medications Acetaminophen (Tylenol) 650 mg PO Q6H PRN PRN PRN Reason: Pain Score 1-3/Temp > 100.7 F Carvedilol (Coreg) 3.125 mg PO BID [facility] Citalopram Hydrobromide (Celexa) 20 mg PO QHS [facility] Last Admin: 09/16/19 21:52 Dose: 20 mg Documented by: Dextrose (D50w Syringe) 0 gm IV X1 PRN; Protocol PRN Reason: Hypoglycemia Folic Acid (Folic Acid) 1 mg PO DAILY@0800 [facility] Stop: 09/19/19 08:01 Last Admin: 09/17/19 09:25 Dose: 1 mg Documented by: Furosemide (Lasix) 40 mg IV BIDLX [facility] Glucagon () 1 mg IM .X1 PRN PRN Reason: Hypoglycemia Lamotrigine (Lamictal) 300 mg PO QHS [facility] Last Admin: 09/16/19 21:52 Dose: 300 mg Documented by: Lisinopril (Zestril) 5 mg PO DAILY [facility] Last Admin: 09/17/19 09:26 Dose: 5 mg Documented by: Melatonin (Melatonin) 3 mg PO QHS PRN PRN PRN Reason: INSOMNIA Multivitamins/Minerals ([facility] With Minerals) [facility] Last Admin: 09/17/19 09:25 Dose: 1 tablet Documented by: Pantoprazole Sodium (Protonix) 20 mg PO QHS [facility] Risperidone (Risperdal) 1 mg PO QHS [facility] Stop: 09/22/19 22:01 Risperidone (Risperdal) 0.5 mg PO QHS [facility] Sodium Chloride () 10 - 40 ml IV UD PRN PRN Reason: SALINE FLUSH Thiamine HCl ([facility]itamin B1) [facility] Stop: 09/19/19 17:01 Last Admin: 09/17/19 09:25 Dose: 100 mg Documented by: Medical Necessity - Tobacco Use Smoking Status: Former smoker Assessment/Plan All Active Problems (Last Updated 09/17/19 @ 07:47 by Refugio Dempsey MD) Acute decompensated heart failure (Acute) Alcoholism (Acute) Impressions 1. acute systolic CHF due to severe cardiomyopathy 2. severe CM with a 10% EF. There is a FH of CM in father, GF and other family members. Mostly in males. CM could also be due to amphetamine use for 3-4 years and alcohol abuse. He has been cutting down and has not had a drink in 3- 4 days. No Tremors and no obvious physical evidence of alcohol withdrawal. Has never been to AA or a rehab program. He tells me he has quit and he will not go back to drinking. 3. obesity 4. hx of depression 5. Abnormal LFTs-possibly secondary to right heart failure plus/minus alcohol abuse. ECHO today Increase the Lasix to 40 mg IV BID add Coreg 3.125 mg BID continue the Lisinopril 5 mg daily Get a copy of the liver US he had at [facility] yesterday Recheck the lab in the AM Check a urine drug screen now. Transfer to the [facility] at the mother's request when there is a bed available Code Visit Inpatient E&M: 70408 Subs Hosp L3
[2019-09-17 14:37] LABS: Amphetamine Urine VISTA NEGATIVE (<1000 ng/mL); Barbiturate Urine VISTA NEGATIVE (< 200 ng/mL); Benzodiazepine Urine VISTA NEGATIVE (< 200 ng/mL); Cocaine Urine VISTA NEGATIVE (< 300 ng/mL); Ecstacy Urine VISTA NEGATIVE (< 500 ng/mL); Methadone Urine VISTA NEGATIVE (< 300 ng/mL); PCP Urine VISTA NEGATIVE (< 25 ng/mL); THC Urine VISTA POSITIVE (< 50 ng/mL); Vista UDS pH Range 5
--- NOTE | 2019-09-17 14:40 | CASEMGMT ---
Pt was awaiting bed at [facility] per request for transfer but unsure when will be obtained. Per Dr. Jenkins, pt is willing to have further testing here at this time. Attempted to see pt x2 but ECHO is still at bedside. Will attempt again later, if able or CM to f/u with pt tomorrow. SStarline BENJAMIN CM
[2019-09-17] MEDS: Carvedilol 6.25 MG Tablet 3.125 MG PO (15:09)
[2019-09-17] MEDS: Furosemide 40 MG/4 ML Vial IV (16:55)
[2019-09-17] MEDS: 0.9% Saline Lock 10 ML Syringe IV (16:55)
[2019-09-17] MEDS: RisperiDONE 1 MG Tablet PO (21:46)
[2019-09-17] MEDS: Citalopram 20 MG Tablet PO (21:46)
[2019-09-17] MEDS: Carvedilol 3.125 MG TABLET PO (21:46)
[2019-09-17] MEDS: lamoTRIgine 100 MG Tablet 300 MG PO (21:46)
[2019-09-17] MEDS: Pantoprazole Sodium 20 MG Tablet PO (21:46)
--- NOTE | 2019-09-17 22:20 | CPS ---
Pt previously on 2L oxygen. Pulse ox trend was started on room air. Shortly after pt complaining of SOB and needing oxygen. Oxygen left off to try and get a baseline oxygen saturation. Sats dropped into low 80's and pt not comfortable without oxygen. 2L oxygen was added back on.
--- NOTE | 2019-09-17 22:27 | NURSING ---
Halima from [facility] called and no beds at this time for transfer.
[2019-09-18] VITALS (13 sets, daily range): BP systolic 110–128; BP diastolic 76–86; PULSE 95–114; RESP 12–22; TEMP 36.3–36.9; O2SAT 94–99
--- NOTE | 2019-09-18 00:59 | NURSING ---
Received report from Angelita Hanna RN. Now taking over care at this time
--- NOTE | 2019-09-18 06:25 | NURSING ---
Lydia from [facility] called and there is a bed for patient. [facility] Main campus, [address] Bed 24.
[2019-09-18 06:29] LABS: Hematocrit 40.5 % (40-54); Hemoglobin 13.3 g/dL (13.0-16.5); Mean Corp Hgb Conc 32.8 g/dL (32-36); Mean Corpuscular Hgb 32.7 pg (27.0-32.0); Mean Corpuscular Volume 99.5 fL (80-94); Platelet Count 253 K/mm3 (150-450); RBC Distribution Width CV 12.8 % (11.6-14.6); RBC Distribution Width SD 46.3 fl (35.1-43.9); Red Blood Count 4.07 M/mm3 (4.6-6.2); White Blood Count 7.9 K/mm3 (4.4-11.0)
[2019-09-18 06:50] LABS: ALB/GLOB Ratio 0.9 RATIO (0.9-2.4); AST(SGOT) 41 U/L (15-37); Alanine Aminotransfer ALT/SGPT 139 U/L (16-61); Albumin, Serum 2.8 g/dL (3.2-5.0); Alkaline Phosphatase 45 U/L (45-117); Anion Gap 9 (5-15); BUN 18 mg/dL (7-18); BUN/Creat Ratio 15.8 RATIO (10-20); Calcium,Total 8.4 mg/dL (8.5-10.1); Chloride 108 mmol/L (98-107); Cholesterol 97 mg/dL (200); Creatinine, Serum 1.14 mg/dL (0.70-1.30); EST Glomerular Filtration Rate 83 mL/min (>60); Est Glom Filt Rate - Afr Amer 100 mL/min (>60); Glucose 90 mg/dL (74-106); High Density Lipoprotein 20 mg/dL; Magnesium 2.4 mg/dL (1.6-2.6); Phosphorus 4.4 mg/dL (2.5-4.9); Potassium 3.5 mmol/L (3.5-5.1); Protein, Total 5.8 g/dL (6.4-8.2); Sodium Level 145 mmol/L (136-145); Triglycerides 100 mg/dL; Very Low Density Lipoprotein 20 mg/dL (5-40)
--- NOTE | 2019-09-18 06:56 | PCM.DC.SUM ---
Discharge Date and Diagnosis - Problem List Patient Problems: Active and Suspected Problems (Last Updated 09/17/19 @ 07:47 by Refugio Dempsey MD) Acute decompensated heart failure (Acute) Alcoholism (Acute) Date of Admission: 09/16/19 - Primary Discharge Diagnosis Active and Suspected Problems (Last Updated 09/17/19 @ 07:47 by Refugio Dempsey MD) Acute decompensated heart failure (Acute) Alcoholism (Acute) - Secondary Discharge Diagnosis Chronic Problems (Last Updated 09/17/19 @ 07:47 by Refugio Dempsey MD) Depression (Chronic) Hospital Course and Treatment Imaging Results: 09/18/19 07:30 Abdomen Complete [US] Urgent Cardiology Procedures: 2-D Echocardiogram Summary of Care Provided: The patient is a 23 year old M with a significant history of depression; anxiety; bipolar disorder and alcoholism who presented to emergency department because of an abnormal echocardiogram on the same day of presentation. Reportedly his ejection fraction was at 15% and with 2-3+ mitral valve regurgitation outpatient echocardiogram. His symptoms that necessitated the outpatient echocardiogram was 2 to 3 weeks of shortness of breath; nausea; vomiting; and racing of his heart. He denied orthopnea. Also he reported that his previous weight was 271 pounds but about 4 days ago his weight was 279 and now his weight is back down to 233 pounds. Also outpatient an ultrasonographic reportedly showed fatty liver infiltration. Patient wanted to go to [facility] so the case was discussed with [facility] and the patient was accepted. However because there were no beds at [facility] patient patient was admitted at the hospital with a plan to transfer to [facility] as soon as a bed became available. Patient was placed on Lasix IV; and lisinopril. Patient was seen by her rv servicer and Lasix IV was escalated. Also he was started on Coreg. Before presentation he had attempted to wean himself off alcohol and the last time that he had drank alcohol was 2 to 3 days prior to presentation. He was initially started on a CIWA protocol with Ativan but because he was not having any active withdrawal Ativan was discontinued. He was however started on Thiamine; folic acid; and multivitamin. Repeat echo showed an ejection fraction of 15%; stage II diastolic dysfunction; severe global hypokinesis of the left ventricle. Also he had mild to moderate eccentric mitral valve insufficiency; mild tricuspid valve insufficiency. His pulmonary artery systolic pressure was 34. He was continued on his home psychotropic medications for his depression and anxiety. A bed finally became available at [facility] so patient will be transferred. Patient Problems: Active and Suspected Problems (Last Updated 09/17/19 @ 07:47 by Refugio Dempsey MD) Acute decompensated heart failure (Acute) Alcoholism (Acute) - Physical Exam Vitals/I&O's: Vital Signs Temp Pulse Resp BP Pulse Ox 98.0 F 102 H 18 112/85 H 97 09/18/19 06:00 09/18/19 06:00 09/18/19 06:00 09/18/19 06:00 09/18/19 06:00 Oxygen Flow Rate (L/min) 2 Oxygen Delivery Method Nasal Cannula Weight: 119.2 kg Body Mass Index (BMI) 38.1 Intake and Output for Last 24 Hours 09/16/19 09/17/19 09/18/19 23:59 23:59 23:59 Intake Total 680 / 920 360 / 360 Output Total 0 / 0 Balance 680 / 920 360 / 360 General: Alert, Oriented x3, Cooperative HEENT: Atraumatic, PERRLA, EOMI, Normocephalic Neck: Supple, No JVD, Negative Carotid Bruits Lungs: Clear to auscultation, Normal air movement Cardiovascular: Regular rate, No murmurs Abdomen: Bowel Sounds Present, Soft, Non Tender Extremities: No edema, Capillary Refill Less than 3 Seconds Skin: No rashes, No breakdown Musculoskeletal: No Tenderness to Palpation of Joints or Extremities Neurological: Cranial nerves II-XII grossly intact Psych/Mental Status: Normal Affect, Appropriate Laboratory Results 09/16/19 12:46: Urine Opiates Screen NEGATIVE, Urine Methadone Screen NEGATIVE, Ur Barbiturates Screen NEGATIVE, Ur Phencyclidine Scrn NEGATIVE, Ur Amphetamines Screen NEGATIVE, U Methamphetamin-MDMA NEGATIVE, U Benzodiazepines Scrn NEGATIVE, Urine Cocaine Screen NEGATIVE, U Cannabinoids Screen POSITIVE H, Ur Drug Screen Comment 09/18/19 05:30: WBC 7.9, RBC 4.07 L, Hgb 13.3, Hct 40.5, MCV 99.5 H, MCH 32.7 H, MCHC 32.8, RDW Std Deviation 46.3 H, RDW Coeff of Sumit 12.8, Plt Count 253, MPV 11.0 09/18/19 05:30: Sodium 145, Potassium 3.5, Chloride 108 H, Carbon Dioxide 28.0, Anion Gap 9, BUN 18, Creatinine 1.14, Estim Creat Clear Calc 105.50, Est GFR (MDRD) Af Amer 100, Est GFR (MDRD) Non-Af 83, BUN/Creatinine Ratio 15.8, Glucose 90, Calcium 8.4 L, Phosphorus 4.4, Magnesium 2.4, Total Bilirubin 1.20 H, AST 41 H, ALT 139 H, Alkaline Phosphatase 45, Total Protein 5.8 L, Albumin 2.8 L, Globulin 3.0, Albumin/Globulin Ratio 0.9, Triglycerides 100, Cholesterol 97, LDL Cholesterol 57, VLDL Cholesterol 20, HDL Cholesterol 20 L Current Medications Acetaminophen (Tylenol) 650 mg PO Q6H PRN PRN PRN Reason: Pain Score 1-3/Temp > 100.7 F Carvedilol (Coreg) 3.125 mg PO BID [facility] Last Admin: 09/17/19 21:46 Dose: 3.125 mg Documented by: Citalopram Hydrobromide (Celexa) 20 mg PO QHS [facility] Last Admin: 09/17/19 21:46 Dose: 20 mg Documented by: Dextrose (D50w Syringe) 0 gm IV X1 PRN; Protocol PRN Reason: Hypoglycemia Enoxaparin Sodium (Lovenox) 40 mg SC DAILY [facility] Folic Acid (Folic Acid) 1 mg PO DAILY@0800 [facility] Stop: 09/19/19 08:01 Last Admin: 09/17/19 09:25 Dose: 1 mg Documented by: Furosemide (Lasix) 40 mg IV BIDLX [facility] Last Admin: 09/17/19 16:55 Dose: 40 mg Documented by: Glucagon () 1 mg IM .X1 PRN PRN Reason: Hypoglycemia Lamotrigine (Lamictal) 300 mg PO QHS [facility] Last Admin: 09/17/19 21:46 Dose: 300 mg Documented by: Lisinopril (Zestril) 5 mg PO DAILY [facility] Last Admin: 09/17/19 09:26 Dose: 5 mg Documented by: Melatonin (Melatonin) 3 mg PO QHS PRN PRN PRN Reason: INSOMNIA Multivitamins/Minerals ([facility]ivitamin With Minerals) [facility] Last Admin: 09/17/19 09:25 Dose: 1 tablet Documented by: Pantoprazole Sodium (Protonix) 20 mg PO QHS [facility] Last Admin: 09/17/19 21:46 Dose: 20 mg Documented by: Potassium Chloride (K-Dur) 20 meq PO DAILYCM [facility] Risperidone (Risperdal) 1 mg PO QHS [facility] Stop: 09/22/19 22:01 Last Admin: 09/17/19 21:46 Dose: 1 mg Documented by: Risperidone (Risperdal) 0.5 mg PO QHS [facility] Sodium Chloride () 10 - 40 ml IV UD PRN PRN Reason: SALINE FLUSH Last Admin: 09/17/19 16:55 Dose: 10 ml Documented by: Thiamine HCl (Vitamin B1) 100 mg PO BIDCM [facility] Stop: 09/19/19 17:01 Last Admin: 09/17/19 16:54 Dose: 100 mg Documented by: Home Medications: Medications to take at Discharge Hydroxyzine Pamoate [Vistaril] 50 - 100 mg PO TID PRN 08/17/19 Lamotrigine [Lamictal] 300 mg PO DAILY 08/17/19 Citalopram [Celexa] 20 mg PO DAILY 09/16/19 Omeprazole 1 tab PO QHS 09/16/19 Risperidone 0.5 tab PO QHS 09/16/19 proMETHazine tablet [Phenergan tablet] 25 mg PO Q6H PRN PRN 09/16/19 Primary Care Physician: Bean Vale MD [Primary Care Provider] - Medical Necessity - Tobacco Use Smoking Status: Former smoker Meaningful Use Info Meaningful Use Diagnoses (Choose all that apply): CHF - CHF DANETTE/ARB ordered at discharge?: Yes Documented LVEF (%): 15 - CVA Therapy Assessed for PT,OT and/or ST?: Yes Code Visit Inpatient E&M: 23641 Disch Hosp
--- NOTE | 2019-09-18 08:38 | PN.CARD_ITS ---
Subjectve: Patient seen and evaluated. Appears to be stable this morning with no complaints. Objective: Vital Signs Temp Pulse Resp BP Pulse Ox 98.0 F 110 H 18 112/85 H 94 09/18/19 06:00 09/18/19 07:00 09/18/19 06:00 09/18/19 06:00 09/18/19 06:54 Oxygen Flow Rate (L/min) 2 Oxygen Delivery Method Nasal Cannula Weight: 262 lb 12.656 oz Body Mass Index (BMI) 38.1 Intake and Output for Last 24 Hours 09/16/19 09/17/19 09/18/19 23:59 23:59 23:59 Intake Total 680 / 920 360 / 360 Output Total 0 / 0 Balance 680 / 920 360 / 360 General: Awake, Alert, Oriented x 3 HEENT: PERRL, EOMI, Sclera Non Icteric Neck: Supple, Good ROM, No Lymph Node Enlargement Lungs: Clear to auscultation Cardiovascular: Regular Rhythm, Normal S1, Normal S2, No Murmurs, No Rubs, No Gallops Vascular: No Carotid Bruits, Normal Femoral Pulses, Normal Radial Pulses, Normal Dorsalis Pedal Pulse, Normal Posterior Tibial Pulses Abdomen: Bowel Sounds Present, Soft, Non Tender, No HSM, No Organomegaly Extremities: No Cyanosis, No Clubbing, No edema Musculoskeletal: No Erythema Skin: No Rashes Lymphatic: No Lymph Node Enlargement Neurological: No Focal Motor or Sensory Deficit Psych/Mental Status: Appropriate 09/18/19 05:30: WBC 7.9, RBC 4.07 L, Hgb 13.3, Hct 40.5, MCV 99.5 H, MCH 32.7 H, MCHC 32.8, Plt Count 253, MPV 11.0 09/18/19 05:30: Sodium 145, Potassium 3.5, Chloride 108 H, Carbon Dioxide 28.0, Anion Gap 9, BUN 18, Creatinine 1.14, Est GFR (MDRD) Af Amer 100, Est GFR (MDRD) Non-Af 83, BUN/Creatinine Ratio 15.8, Glucose 90, Calcium 8.4 L, Phosphorus 4.4, Magnesium 2.4, Total Bilirubin 1.20 H, Triglycerides 100, Cholesterol 97, LDL Cholesterol 57, VLDL Cholesterol 20, HDL Cholesterol 20 L Rhythm: EKG: ECHO: Very reduced left ventricular ejection fraction estimated EF 15%. Medical Necessity - Tobacco Use Smoking Status: Former smoker Assessment/Plan 1. Severe left ventricular systolic dysfunction * Patient presents and is noted to have severe left ventricular systolic dysfunction. The etiology of the above may be hereditary. 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 There is a thrombus noted in the apex. * Recommend continuing beta-rose marie increasing the Coreg to 6.25 mg twice a day * Continue lisinopril at 5 mg a day * Change Lasix to 40 mg orally twice a day * Will recommend starting Eliquis 5 mg twice a day * Patient apparently agreeable to staying here in this hospital now. * Further recommendations will depend on his clinical course over the next few months. * Thank you for allowing me to participate in the care of your patient. Please don't hesitate to call if any issues arise
--- NOTE | 2019-09-18 09:43 | PCM.PN.BLA ---
Progress Note All events of the past 24 hours of been reviewed. A bed became available at the [facility] however the patient has elected to stay at [facility] for treatment of his severe cardiomyopathy. Heart rate has improved with treatment and since midnight has ranged from 102-110. Blood pressure is better controlled and since midnight has ranged from 112/85-128/86 currently. Coreg has been increased. He is currently 94 to 97% saturated on a 2 L nasal cannula. Saturation was good on room air however the patient was tachypneic and complaining of shortness of breath. This has improved with the addition of oxygen. No urine output has been recorded. All lab was personally reviewed. CBC is unremarkable. BUN is 18 with a creatinine of 1.14, up from 1.06 at admission. Potassium is 3.5 today. LFTs are improving with diuresis and control of heart rate. I suspect that the elevated liver function studies are in part due to right heart failure. Ultrasound also revealed fatty infiltration of the liver. Lipid panel today shows a total cholesterol of 97 with triglycerides of 100. Magnesium is 2.4 today. LDL is 57 and the HDL is low at 20. Urine drug screen was positive for cannabinoids but negative for everything else. Echocardiogram shows a mildly dilated left ventricle with a 15% ejection fraction with global hypokinesis and apical thrombus. The left atrium was severely enlarged and the right atrium was normal. Pulmonary artery systolic pressure was estimated at 34 and he has 1+ TR. He had 1-2+ mitral valve insufficiency. There was no pericardial effusion. I reviewed Dr. Mesa's consult and was in the room when he interviewed the patient. Dr. Braden is rounding today and I reviewed his note. Coreg has been increased to 6.25 mg twice daily and apixaban has been added for left ventricular thrombus. He has been converted to oral Lasix 40 mg p.o. daily. He remains on lisinopril 5 mg p.o. daily. Tele shows ST with 2 runs of non-sustained VT. Denies CP, SOB is better with the Oxygen. Overnight trending pulse ox showed he desaturated > 400 times last night. Only 3 times > 3 minutes. I was watching him breath this AM while sleeping and he is having SDB with Matt-Jimenez respirations. Can not stay awake to talk with me. He is chronically tired per his mother. He sleep eats at night and does not remember the next day. PHYSICAL EXAM: GENERAL: Somnolent, cooperative when awake, NAD ORAL: dry mucosa, no mucosal lesions NECK: No JVD, supple, trachea midline LUNGS: CTA, symmetric chest expansion, no rales HEART: reg with increased resting HR. , Normal S1 and S2, no rub, + gallop ABDOMEN: soft, NT, ND, BS present, no guarding with palpation EXTREMITIES: no edema, no cyanosis, no calf tenderness SKIN: No rashes, no breakdown NEUROLOGIC: no focal neurologic deficits PSYCH: appropriate, flat affect, pleasant Impressions 1. acute systolic CHF due to severe cardiomyopathy 2. severe CM with a 10% EF. There is a FH of CM in father, GF and other family members. Mostly in males. CM could also be due to amphetamine use for 3-4 years and alcohol abuse. He has been cutting down and has not had a drink in 3-4 days. No Tremors and no obvious physical evidence of alcohol withdrawal. Has never been to AA or a rehab program. He tells me he has quit and he will not go back to drinking. 3. obesity 4. hx of depression 5. Sleep disordered ussbdjlmy-[place] respirations likely due to central sleep apnea related to CM with CHF. 6. Abnormal LFTs-possibly secondary to right heart failure plus/minus alcohol abuse - improving. Fatty infiltration of the liver on recent Liver US 7. LV thrombus - Started on Eliquis Will need a new sleep study and follow up with Pulmonary for CPAP - will trial on CPAP while in the hospital Increase the Coreg to 6.25 and transitioned to oral Lasix Continue the Lisinopril at 5 mg daily Will ambulate on RA prior to DC. Supplement the potassium to keep it around 4. STROKE Vital Signs/Narrative: Vital Signs Temp Pulse Resp BP Pulse Ox 09/18/19 07:00 110 H 09/18/19 06:54 94 09/18/19 06:00 98.0 F 102 H 18 112/85 H 97 Code Visit Inpatient E&M: 48261 Subs Hosp L3
[2019-09-18] MEDS: Multivitamins,Ther W-Minerals Tablet 1 TABLET PO (09:54)
[2019-09-18] MEDS: Folic Acid 1 MG Tablet PO (09:54)
[2019-09-18] MEDS: Thiamine Hydrochloride 100 MG Tablet PO ×2 (09:56→17:22)
[2019-09-18] MEDS: Lisinopril 5 MG Tablet PO (09:57)
[2019-09-18] MEDS: APIXABAN 5 MG TABLET PO ×2 (10:12→22:03)
[2019-09-18] MEDS: Furosemide 40 MG Tablet PO ×2 (10:12→17:21)
[2019-09-18] MEDS: Carvedilol 6.25 MG Tablet PO ×2 (10:12→22:03)
[2019-09-18] MEDS: RisperiDONE 1 MG Tablet PO (22:03)
[2019-09-18] MEDS: Pantoprazole Sodium 20 MG Tablet PO (22:07)
[2019-09-18] MEDS: Citalopram 20 MG Tablet PO (22:07)
[2019-09-18] MEDS: lamoTRIgine 100 MG Tablet 300 MG PO (22:08)
[2019-09-19] VITALS (8 sets, daily range): BP systolic 97–109; BP diastolic 61–68; PULSE 80–106; RESP 12–32; TEMP 36.7–36.8; O2SAT 96–97
[2019-09-19 06:30] LABS: Anion Gap 8 (5-15); BUN 22 mg/dL (7-18); Calcium,Total 8.5 mg/dL (8.5-10.1); Chloride 109 mmol/L (98-107); EST Glomerular Filtration Rate 96 mL/min (>60); Est Glom Filt Rate - Afr Amer 116 mL/min (>60); Estimated Creatinine Clearance 120.27 ml/min; Glucose 83 mg/dL (74-106); Magnesium 2.5 mg/dL (1.6-2.6); Potassium 3.9 mmol/L (3.5-5.1); Sodium Level 141 mmol/L (136-145)
[2019-09-19] MEDS: Folic Acid 1 MG Tablet PO (08:19)
[2019-09-19] MEDS: Thiamine Hydrochloride 100 MG Tablet PO (08:19)
[2019-09-19] MEDS: Multivitamins,Ther W-Minerals Tablet 1 TABLET PO (08:19)
--- NOTE | 2019-09-19 09:22 | PN.CARD_ITS ---
Subjectve: Patient seen and evaluated. Appears to be stable. Sleeping. With CPAP mask. Objective: Vital Signs Temp Pulse Resp BP Pulse Ox 98.1 F 99 18 106/61 96 09/19/19 08:12 09/19/19 08:12 09/19/19 08:12 09/19/19 08:12 09/19/19 08:12 Oxygen Flow Rate (L/min) 2 Oxygen Delivery Method Room Air Weight: 257 lb 0.944 oz Body Mass Index (BMI) 38.1 Intake and Output for Last 24 Hours 09/17/19 09/18/19 09/19/19 23:59 23:59 23:59 Intake Total 680 / 920 1170 / 1170 0 / 0 Output Total 0 / 0 802 / 802 Balance 680 / 920 368 / 368 0 / 0 General: Awake, Alert, Oriented x 3 HEENT: PERRL, EOMI, Sclera Non Icteric Neck: Supple, Good ROM, No Lymph Node Enlargement Lungs: Clear to auscultation Cardiovascular: Regular Rhythm, Normal S1, Normal S2, No Murmurs, No Rubs, No Gallops Vascular: No Carotid Bruits, Normal Femoral Pulses, Normal Radial Pulses, Normal Dorsalis Pedal Pulse, Normal Posterior Tibial Pulses Abdomen: Bowel Sounds Present, Soft, Non Tender, No HSM, No Organomegaly Extremities: No Cyanosis, No Clubbing, No edema Musculoskeletal: No Erythema Skin: No Rashes Lymphatic: No Lymph Node Enlargement Neurological: No Focal Motor or Sensory Deficit Psych/Mental Status: Appropriate 09/19/19 05:25: Sodium 141, Potassium 3.9, Chloride 109 H, Carbon Dioxide 24.0, Anion Gap 8, BUN 22 H, Creatinine 1.00, Est GFR (MDRD) Af Amer 116, Est GFR (MDRD) Non-Af 96, BUN/Creatinine Ratio 22.0 H, Glucose 83, Calcium 8.5, Magnesium 2.5 Rhythm: EKG: ECHO: Stress Test: Cardiac Cath: PCI: CT Surgery: Holter monitor: EPS: PPM: CXR: Chest CT Scan: Medical Necessity - Tobacco Use Smoking Status: Former smoker Assessment/Plan 1. Severe left ventricular systolic dysfunction * Patient presents and is noted to have severe left ventricular systolic dysfunction. The etiology of the above may be hereditary. 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 There is a thrombus noted in the apex. * Recommend continuing beta-rose marie increasing the Coreg to 6.25 mg twice a day * Continue lisinopril at 5 mg a day * Lasix to 40 mg orally twice a day * Will recommend starting Eliquis 5 mg twice a day * We will continue current medical therapy for now with no changes. * Further recommendations will depend on his clinical course over the next few months. * Thank you for allowing me to participate in the care of your patient. Please don't hesitate to call if any issues arise
[2019-09-19] MEDS: Furosemide 40 MG Tablet PO (09:55)
[2019-09-19] MEDS: APIXABAN 5 MG TABLET PO (09:56)
[2019-09-19] MEDS: Lisinopril 5 MG Tablet PO (09:56)
[2019-09-19] MEDS: Carvedilol 6.25 MG Tablet PO (09:56)
--- NOTE | 2019-09-19 12:05 | PCM.DC ---
- Discharge Diagnoses Current Active Problems: Current Active and Chronic Problems (Last Updated 09/17/19 @ 07:47 by Refugio Dempsey MD) Acute decompensated heart failure (Acute) Alcoholism (Acute) Depression (Chronic) You will use the following diet at home:: Cardiac, Fluid restricted (specify 2000 mls, 1500 mls) - 1500 cc's Your food should be the consistency of: Regular Your liquids should be the consistency of: Regular/Thin Discharge Activity: - - Activity as tolerated. No heavy lifting. If you get short of breath or tired sit down and rest. Your heart does not squeeze as strongly as it should and you are going to fatigue more quickly than other 25 year olds. This should improve with medication. Exercise is good. Work up to walking for 30 minutes daily. May resume sexual activity in: No Restrictions Weight Bearing Status: Full weight bearing Lifting Restrictions: 5-10 pounds Call your doctor if you observe: Fever of 101 or Higher, Shortness of breath, Dizziness, Fainting spells, Swelling in the ankles, Chest pain Additional Instructions: 1. Weigh yourself daily in the morning after urinating, naked or in the same clothes and keep a record. If the weight increases 5 lbs in 1 week from your baseline [place] Dr. Hercules's office. If your weight is increasing it probably means you are eating too much salt or drinking too much. 2. I think you will feel a lot better if you get the sleep apnea treated. Call the pulmonary office tomorrow and get scheduled for an appt so that can schedue you for a sleep study. 3. there is a good change that the heart will improve but, we have to do everything right so try very heart to stick to the salt and fluid restriction, start an exercise program, lose some weght and make sure to keep your appts. 4. I am going to have you follow up with Dr. Vale this week and he jamal want to draw some lab to check the potassium and the kidney function. 5. Good [place] Je, it was a pleasure to meet you and help care for you. Pending Tests on Discharge: none Allergies/Adverse Reactions: Allergies No Known Allergies Allergy (Verified 09/16/19 11:46) Medications to take at Discharge Hydroxyzine Pamoate [Vistaril] 50 - 100 mg PO TID PRN 08/17/19 Lamotrigine [Lamictal] 300 mg PO DAILY 08/17/19 Citalopram [Celexa] 20 mg PO DAILY 09/16/19 Omeprazole 1 tab PO QHS 09/16/19 Risperidone 0.5 tab PO QHS 09/16/19 proMETHazine tablet [Phenergan tablet] 25 mg PO Q6H PRN PRN 09/16/19 Apixaban [Eliquis] 5 mg PO BID #60 tab 09/19/19 Carvedilol [Coreg (Beta Johnny)] 6.25 mg PO BID #60 tab 09/19/19 Furosemide [Lasix] 40 mg PO BID@1000,1800 #60 tab 09/19/19 Lisinopril [Zestril] 5 mg PO DAILY #30 tab 09/19/19 Potassium Chloride [K-Dur] 20 meq PO DAILYCM #60 tab 09/19/19 The following prescriptions were given: Carvedilol [Coreg (Beta Johnny)] 6.25 mg PO BID #60 tab Transmission Status: Pending to [address] Apixaban [Eliquis] 5 mg PO BID #60 tab Transmission Status: Pending to [address] Potassium Chloride [K-Dur] 20 meq PO DAILYCM #60 tab Transmission Status: Pending to [address] Furosemide [Lasix] 40 mg PO BID@1000,1800 #60 tab Transmission Status: Pending to [address] Lisinopril [Zestril] 5 mg PO DAILY #30 tab Transmission Status: Pending to [address] Primary Care Physician: Bean Vale MD [Primary Care Provider] - Please follow up with your Primary Care Physician in: end of this week Test Results: Test results from this visit will be discussed in further detail at your follow-up appointment, if applicable. Please Follow Up With: Lucio Hercules MD When: 2 weeks. Proposed Discharge Date: 09/19/19
--- NOTE | 2019-09-19 12:36 | PCM.DC.SUM ---
Discharge Date and Diagnosis - Problem List Patient Problems: Active and Suspected Problems (Last Updated 09/17/19 @ 07:47 by Refugio Dempsey MD) Left ventricular thrombus (Acute) Abnormal LFTs (Acute) Central sleep apnea with Matt-Jimenez respiration (Suspected) Sleep-disordered breathing (Acute) Paroxysmal atrial fibrillation (Acute) Nonsustained ventricular tachycardia (Acute) Cardiomyopathy (Acute) Systolic CHF (Acute) Date of Admission: 09/16/19 Date of Discharge: 09/19/19 - Primary Discharge Diagnosis Active and Suspected Problems (Last Updated 09/17/19 @ 07:47 by Refugio Dempsey MD) Systolic CHF (Acute) Severe Cardiomyopathy (Acute) 15% EF Left ventricular thrombus (Acute) Diastolic Dysfunction stage 3 Abnormal LFTs (Acute) - suspect due to R heart failure Central sleep apnea with Matt-Jimenez respiration (Suspected) Sleep-disordered breathing (Acute) Paroxysmal atrial fibrillation (Acute) - brief episode Nonsustained ventricular tachycardia (Acute) - Secondary Discharge Diagnosis Chronic Problems (Last Updated 09/17/19 @ 07:47 by Refugio Dempsey MD) Left atrial enlargement (Chronic) Grade III diastolic dysfunction (Chronic) Chronic anticoagulation (Chronic) - on Eliquis for LV thrombus Obesity (Chronic) 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 Electronically Signed: Barrington Norton, at 13:24 EST , Service support , Laboratory Results - last 24 hr 09/19/19 05:25 Sodium 141 Potassium 3.9 Chloride 109 H Carbon Dioxide 24.0 Anion Gap 8 BUN 22 H Creatinine 1.00 Estim Creat Clear Calc 120.27 Est GFR (MDRD) Af Amer 116 Est GFR (MDRD) Non-Af 96 BUN/Creatinine Ratio 22.0 H Glucose 83 Calcium 8.5 Magnesium 2.5 ECHO Interpretation Summary Mildly dilated left ventricle. The estimated ejection fraction is 15 %. Probable ventricular non compaction with apical thrombus Stage 3 diastolic dysfunction. The left atrium is severely enlarged. Mild (1+) tricuspid valve insufficiency. Mild-Moderate (1-2+) eccentric mitral valve insufficiency. Contrast injection was performed. Dr. Shaw Hercules and Dr. Frank [facility] Operations: None Procedures: 2-D Echocardiogram, - - overnight trending pulse ox Summary of Care Provided: The patient is a 23-year-old male with a past medical history of obesity, alcohol dependence, depression, family history of cardiomyopathy and amphetamine use (prescribed for ADHD) who was sent to the [facility] ED on 09/16/19 because an OP ECHO done for SALDANA showed a 10% - 15% EF. Vital signs at admission were temperature 97.8, pulse rate 121, blood pressure 140/89, respiratory rate 16 and he was 96% saturated on room air. CBC was unremarkable. PT was mildly prolonged at 15.9. BMP showed a BUN of 17 and a creatinine of 1.06. Random blood sugar was 137. Lactic acid was 1.4. Total bilirubin was 1.5 with an AST of 73, ALT of 206 and a alkaline phosphatase of 51. BNP was 1295. UA had no white blood cells or red blood cells. Chest x-ray revealed cardiomegaly with no pleural effusions, no significant pulmonary vascular congestion and no infiltrates. He was admitted to a monitored bed on PCU and was started on Lasix 20 mg IV twice daily, lisinopril 5 mg daily and his regular medications were resumed. Echocardiogram was repeated at [facility] and showed a mildly dilated left ventricle with a 15% ejection fraction. There was a probable apical mural thrombus, stage III diastolic dysfunction and a severely enlarged left atrium. There was 1+ TR and 1-2+ MR. He was started on Eliquis 5 mg BID. He was seen in consult by Dr. Hercules and by Dr. Braden. He was transitioned to oral Lasix and Coreg was adde to the drug regimen. An overnight trending pulse ox showed 3 desaturations > 3 minutes and > 400 desaturations < 3 minutes. He was observed sleeping and he has Matt-Jimenez respirations. He most likely has central sleep apnea related to the cardiomyopathy and congestive heart failure with Matt-Jimenez respirations. He was placed on CPAP and wore the CPAP all night the night prior to DC. The following morning he was much more alert and able to stay awake while I was talking with him. At the time of discharge his heart rate was 80 and his blood pressure was 109/63. The respiratory rate was 18 and he was 96% saturated on room air. Labs showed a potassium of 3.9 and a BUN of 22 with a creatinine of 1.0, down from 1.06 at admission. Magnesium was 2.5. The pt and his mother met with the supervisor filtration to discuss a low salt diet, 1-2 GM per day and fluid restriction. Astrid met with Dr. Braden and all their questions were answered. He was discharged home on Lasix 40 mg BID, Coreg 6.25 mg BID, Lisinopril 5 mg daily, Eliquis 5 mg p.o. twice daily and Potassium 20 MEQ daily. He will follow up with Dr. Vale toward the end of the week and he should have a BMP and a mag at that time. He will follow-up in the pulmonary office with Meredith Paez within the next 2 weeks to schedule an outpatient sleep study. Following the sleep study he will follow-up with Dr. Rowan. He will follow-up with either Dr. Mesa or Dr. Braden in 2 weeks. While in the hospital he had 2 runs of non-sustained VT that were asymptomatic and 1 brief run of asymptomatic AF. He will likely have a follow up ECHO and if the EF remains low he will be a candidate for an AICD. PHYSICAL EXAM: GENERAL: alert, oriented X 3, Cooperative, NAD ORAL: moist mucosa, no mucosal lesions NECK: No JVD, supple, trachea midline LUNGS: CTA, symmetric chest expansion HEART: RRR, Normal S1 and S2, no rub, no gallop ABDOMEN: soft, NT, ND, BS present, no guarding with palpation EXTREMITIES: no edema, no cyanosis, no calf tenderness SKIN: No rashes, no breakdown NEUROLOGIC: no focal neurologic deficits PSYCH: appropriate, normal affect, pleasant This note was generated with [employer] dictation software. It may contain incorrect words, spelling, and punctuation that were not noted in checking the note before signing. Patient Problems: Active and Suspected Problems (Last Updated 09/17/19 @ 07:47 by Refugio Dempsey MD) Left ventricular thrombus (Acute) Abnormal LFTs (Acute) Central sleep apnea with Matt-Jimenez respiration (Suspected) Sleep-disordered breathing (Acute) Paroxysmal atrial fibrillation (Acute) Nonsustained ventricular tachycardia (Acute) Cardiomyopathy (Acute) Systolic CHF (Acute) - Physical Exam Vitals/I&O's: Vital Signs Temp Pulse Resp BP Pulse Ox 98.1 F 99 18 106/61 96 09/19/19 08:12 09/19/19 08:12 09/19/19 08:12 09/19/19 08:12 09/19/19 08:12 Oxygen Flow Rate (L/min) 2 Oxygen Delivery Method Room Air Weight: 257 lb 0.944 oz Body Mass Index (BMI) 38.1 Intake and Output for Last 24 Hours 09/17/19 09/18/19 09/19/19 23:59 23:59 23:59 Intake Total 680 / 920 1170 / 1170 0 / 0 Output Total 0 / 0 802 / 802 Balance 680 / 920 368 / 368 0 / 0 Laboratory Results 09/19/19 05:25: Sodium 141, Potassium 3.9, Chloride 109 H, Carbon Dioxide 24.0, Anion Gap 8, BUN 22 H, Creatinine 1.00, Estim Creat Clear Calc 120.27, Est GFR (MDRD) Af Amer 116, Est GFR (MDRD) Non-Af 96, BUN/Creatinine Ratio 22.0 H, Glucose 83, Calcium 8.5, Magnesium 2.5 Current Medications Acetaminophen (Tylenol) 650 mg PO Q6H PRN PRN PRN Reason: Pain Score 1-3/Temp > 100.7 F Apixaban (Eliquis) 5 mg PO BID [facility] Last Admin: 09/19/19 09:56 Dose: 5 mg Documented by: Carvedilol (Coreg) 6.25 mg PO BID [facility] Last Admin: 09/19/19 09:56 Dose: 6.25 mg Documented by: Citalopram Hydrobromide (Celexa) 20 mg PO QHS [facility] Last Admin: 09/18/19 22:07 Dose: 20 mg Documented by: Dextrose (D50w Syringe) 0 gm IV X1 PRN; Protocol PRN Reason: Hypoglycemia Furosemide (Lasix) 40 mg PO BID@1000,1800 [facility] Last Admin: 09/19/19 09:55 Dose: 40 mg Documented by: Glucagon () 1 mg IM .X1 PRN PRN Reason: Hypoglycemia Lamotrigine (Lamictal) 300 mg PO QHS [facility] Last Admin: 11/09/19 22:08 Dose: 300 mg Documented by: Lisinopril (Zestril) 5 mg PO DAILY [facility] Last Admin: 09/19/19 09:56 Dose: 5 mg Documented by: Melatonin (Melatonin) 3 mg PO QHS PRN PRN PRN Reason: INSOMNIA Multivitamins/Minerals ([facility] With Minerals) [facility] Last Admin: 09/19/19 08:19 Dose: 1 tablet Documented by: Pantoprazole Sodium (Protonix) 20 mg PO QHS [facility] Last Admin: 09/18/19 22:07 Dose: 20 mg Documented by: Potassium Chlor[facility] ([facility]-Dur) [facility] Last Admin: 09/19/19 08:18 Dose: 20 meq Documented by: Risperidone (Risperdal) 1 mg PO QHS [facility] Stop: 09/22/19 22:01 Last Admin: 09/18/19 22:03 Dose: 1 mg Documented by: Risperidone (Risperdal) 0.5 mg PO QHS [facility] Sodium Chloride () 10 - 40 ml IV UD PRN PRN Reason: SALINE FLUSH Last Admin: 09/17/19 16:55 Dose: 10 ml Documented by: Thiamine HCl ([facility]itamin B1) [facility] Stop: 09/19/19 17:01 Last Admin: 09/19/19 08:19 Dose: 100 mg Documented by: Discharge Activity: - - Activity as tolerated. No heavy lifting. If you get short of breath or tired sit down and rest. Your heart does not squeeze as strongly as it should and you are going to fatigue more quickly than other 25 year olds. This should improve with medication. Exercise is good. Work up to walking for 30 minutes daily. May resume sexual activity in: No Restrictions Weight Bearing Status: Full weight bearing Call your doctor if you observe: Fever of 101 or Higher, Shortness of breath, Dizziness, Fainting spells, Swelling in the ankles, Chest pain Home Medications: Medications to take at Discharge Hydroxyzine Pamoate [Vistaril] 50 - 100 mg PO TID PRN 08/17/19 Lamotrigine [Lamictal] 300 mg PO DAILY 08/17/19 Citalopram [Celexa] 20 mg PO DAILY 09/16/19 Omeprazole 1 tab PO QHS 09/16/19 Risperidone 0.5 tab PO QHS 09/16/19 proMETHazine tablet [Phenergan tablet] 25 mg PO Q6H PRN PRN 09/16/19 Apixaban [Eliquis] 5 mg PO BID #60 tab 09/19/19 Carvedilol [Coreg (Beta Johnny)] 6.25 mg PO BID #60 tab 09/19/19 Furosemide [Lasix] 40 mg PO BID@1000,1800 #60 tab 09/19/19 Lisinopril [Zestril] 5 mg PO DAILY #30 tab 09/19/19 Potassium Chloride [K-Dur] 20 meq PO DAILYCM #60 tab 09/19/19 Following Prescrptions Were Given to Patient: Carvedilol [Coreg (Beta Johnny)] 6.25 mg PO BID #60 tab Transmission Status: Received by [facility] [id number] Apixaban [Eliquis] 5 mg PO BID #60 tab [facility]: [facility] [address] Potassium Chloride [K-Dur] 20 meq PO DAILYCM #60 tab Transmission Status: Received by [address] Furosemide [Lasix] 40 mg PO BID@1000,1800 #60 tab Transmission Status: Received by [address] Lisinopril [Zestril] 5 mg PO DAILY #30 tab Transmission Status: Received by [address] Primary Care Physician: Bean Vale MD [Primary Care Provider] - Please follow up with your Primary Care Physician in: end of this week Please Follow Up With: Lucio Hercules MD When: 2 weeks. Disposition: Home Minutes spent on discharge:: 35 Patient Condition:: Good Medical Necessity - Tobacco Use Smoking Status: Former smoker Tobacco Use: Non-smoker Meaningful Use Info Meaningful Use Diagnoses (Choose all that apply): CHF - CHF DANETTE/ARB ordered at discharge?: Yes Documented LVEF (%): 15 Code Visit Inpatient E&M: 49332 Disch Hosp
== END 2019-09-19 13:00 | disposition home or self-care (01) | DRG 194 ==
LOC: ED 22:36 → PCU 23:07
PROVIDERS: Admitting Provider Hospitalist; Emergency Provider Emergency Medicine; Family Provider Family Medicine; PCP Family Medicine; Visit Provider Internal Medicine
DX: I50.21 Acute systolic (congestive) heart failure (principal); I51.3 Intracardiac thrombosis, not elsewhere classified; R06.3 Periodic breathing; I47.2 Ventricular tachycardia; I42.9 Cardiomyopathy, unspecified; K76.0 Fatty (change of) liver, not elsewhere classified; G47.31 Primary central sleep apnea; E66.9 Obesity, unspecified; R94.5 Abnormal results of liver function studies; I48.0 Paroxysmal atrial fibrillation; I50.810 Right heart failure, unspecified; F32.9 Major depressive disorder, single episode, unspecified; F10.21 Alcohol dependence, in remission; Z82.49 Family history of ischemic heart disease and other diseases of the circulatory system; Z68.38 Body mass index [BMI] 38.0-38.9, adult
CPT/HCPCS: 36415; 71045; 80048; 80053; 80061; 80076; 80307; 81001; 83605; 83690; 83735; 83880; 84100; 84443; 84484; 85025; 85027; 85610; 85730; 93005; 93306; 94002; 94003; 94762; 97802; 97803; 99285; J7030; Q9957; A4216; J1940

== ENCOUNTER → 2019-11-18 23:12 | Outpatient (CLI) | payer MEDICAID, SELFPAY ==
[2019-09-28 10:42] VITALS: BMI 36.1
== END ==
PROVIDERS: Family Provider Family Medicine; PCP Family Medicine; Referring Provider Internal Medicine Critical Care Medicine; Visit Provider Internal Medicine Critical Care Medicine
DX: G47.33 Obstructive sleep apnea (adult) (pediatric) (principal)
CPT/HCPCS: 95810

== ENCOUNTER → 2019-11-26 13:27 | Outpatient (CLI) | payer MEDICAID, SELFPAY ==
[2019-11-26 12:53] VITALS: BMI 35.4
[2019-11-26 15:04] LABS: Anion Gap 3 (5-15); BUN 10 mg/dL (7-18); BUN/Creat Ratio 12.2 RATIO (10-20); Calcium,Total 9.3 mg/dL (8.5-10.1); Chloride 106 mmol/L (98-107); Creatinine, Serum 0.82 mg/dL (0.70-1.30); EST Glomerular Filtration Rate 121 mL/min (>60); Est Glom Filt Rate - Afr Amer 146 mL/min (>60); Glucose 92 mg/dL (74-106); Magnesium 2.4 mg/dL (1.6-2.6); Potassium 4.3 mmol/L (3.5-5.1); Sodium Level 139 mmol/L (136-145); Thyroid Stim Hormone (TSH) 1.01 uIU/mL (0.358-3.74)
== END ==
PROVIDERS: PCP Family Medicine; Referring Provider Internal Medicine Cardiovascular Disease; Visit Provider Internal Medicine Cardiovascular Disease
DX: I50.42 Chronic combined systolic (congestive) and diastolic (congestive) heart failure (principal); I48.0 Paroxysmal atrial fibrillation
CPT/HCPCS: 36415; 80048; 83735; 84443

== ENCOUNTER → 2019-12-22 19:57 | Outpatient (CLI) | payer MEDICAID, SELFPAY ==
[2019-11-30 13:26] VITALS: BMI 35.4
[2019-12-22] MEDS: Zolpidem Tartrate 5 MG Tablet PO (21:25)
== END ==
LOC: SL 19:57
PROVIDERS: PCP Family Medicine; Referring Provider Nurse Practitioner Acute Care; Visit Provider Nurse Practitioner Acute Care
DX: G47.33 Obstructive sleep apnea (adult) (pediatric) (principal)
CPT/HCPCS: 95811

== ENCOUNTER → 2020-01-05 13:16 | Outpatient (CLI) | payer MEDICAID, SELFPAY ==
[2019-11-30 13:26] VITALS: BMI 35.4
--- NOTE | 2020-01-05 13:17 | ECHOCS_ITS ---
Reason For Study: DYSPNEA Procedure This was a 2D Doppler, Color Flow transthoracic echocardiogram. The study was technically difficult. Contrast injection was performed. Exam performed in department. Left Ventricle Severely dilated left ventricle. Stage 2 diastolic dysfunction. The estimated ejection fraction is 15 %. There is severe global hypokinesis of the left ventricle. Right Ventricle Normal RV size. Normal systolic function. Atria Normal left atrium. Normal right atrium. Mitral Valve Normal mitral valve. Tricuspid Valve Normal tricuspid valve. Mild (1+) tricuspid valve insufficiency. Pulmonary artery systolic pressure is 26 mmHg. Aortic Valve Trisinus/trileaflet aortic valve. Pulmonic Valve Normal pulmonic valve. Mild (1+) pulmonic valve insufficiency. Great Vessels Normal aortic root. The pulmonary artery is normal size. Normal inferior vena cava. Pericardium/Pleural No pericardial effusion. Medication 22 gauge I.V. with prn adaptor inserted into right arm. Diluted definity 5.0ml given slow IV push to enhance endocardial definition. MMode/2D Measurements & Calculations LVIDd: 6.7 cm IVSd: 0.82 cm Ao root diam: 3.3 cm LVIDs: 5.8 cm LVPWd: 0.95 cm RVDd: 3.9 cm FS: 14.0 % LAV(MOD-bp): 64.5 ml LA A4 area: 20.5 cm2 LA dimension(2D): 5.1 cm LAV(MOD-bp) Indexed: 27.7 ml/m2 LAV(MOD-sp2): 69.9 ml LAV(MOD-sp4): 59.1 ml RA A4 area: 15.5 cm2 Time Measurements MV dec time: 0.20 sec Doppler Measurements & Calculations MV E max sandeep: 77.6 cm/sec Lat Peak E' Sandeep: 11.7 cm/sec Med Peak E' Sandeep: 8.8 cm/sec MV A max sandeep: 42.2 cm/sec E/E' lat: 6.6 E/E' med: 8.8 MV E/A: 1.8 Ao V2 max: 113.7 cm/sec LV V1 max: 83.8 cm/sec PA V2 max: 102.5 cm/sec Ao max P.2 mmHg LV V1 max P.8 mmHg PI end-d sandeep: 137.2 cm/sec TR max sandeep: 241.1 cm/sec TR max P.2 mmHg Interpretation Summary Severely dilated left ventricle. Stage 2 diastolic dysfunction. Mild (1+) tricuspid valve insufficiency. The estimated ejection fraction is 15 %. Contrast injection was performed. Compared to prior study, there is no significant change. Ordering Physician: Frank Braden Referring Physician: KIANNA PATEL Performed By: Chiquita Billy, DANICS, RVT
== END ==
LOC: CVS 13:17
PROVIDERS: PCP Family Medicine; Referring Provider Internal Medicine Cardiovascular Disease; Visit Provider Internal Medicine Cardiovascular Disease
DX: I50.42 Chronic combined systolic (congestive) and diastolic (congestive) heart failure (principal); I42.8 Other cardiomyopathies
CPT/HCPCS: 93306; Q9957; A4216; C8929

== ENCOUNTER → 2020-01-27 09:00 | Outpatient (CLI) | payer MEDICAID, SELFPAY ==
[2019-11-30 13:26] VITALS: BMI 35.4
== END ==
PROVIDERS: PCP Family Medicine; Referring Provider Nurse Practitioner Acute Care; Visit Provider Nurse Practitioner Acute Care
DX: Z46.89 Encounter for fitting and adjustment of other specified devices (principal)

== ENCOUNTER → 2020-06-13 13:00 | Outpatient (CLI) | payer MEDICAID, SELFPAY ==
[2020-01-18 09:50] VITALS: BMI 37.0
[2020-06-02 11:19] VITALS: BMI 37.6
--- NOTE | 2020-06-13 13:02 | ECHOCS_ITS ---
Reason For Study: AFIB/FLUTTER Procedure This was a 2D Doppler, Color Flow transthoracic echocardiogram. The study was technically difficult. Due to body habitus. Contrast injection was performed. Exam performed in department. Left Ventricle Severely dilated left ventricle. The estimated ejection fraction is 25 %. Stage 2 diastolic dysfunction. There is severe global hypokinesis of the left ventricle. Right Ventricle Normal RV size. Normal systolic function. Atria The left atrium is mildly enlarged. Normal right atrium. Mitral Valve Normal mitral valve. Tricuspid Valve Normal tricuspid valve. Mild (1+) tricuspid valve insufficiency. Pulmonary artery systolic pressure is 23 mmHg. Aortic Valve Normal aortic valve. Trisinus/trileaflet aortic valve. Pulmonic Valve Normal pulmonic valve. Great Vessels Normal aortic root. The pulmonary artery is normal size. Normal inferior vena cava. Pericardium/Pleural No pericardial effusion. Medication 22 gauge I.V. with prn adaptor inserted into right arm. Diluted definity 2.0ml given slow IV push to enhance endocardial definition. MMode/2D Measurements & Calculations LVIDd: 6.5 cm IVSd: 0.99 cm Ao root diam: 3.3 cm LVIDs: 5.3 cm LVPWd: 0.99 cm RVDd: 3.8 cm FS: 19.5 % LAV(MOD-bp): 81.2 ml LA A4 area: 23.3 cm2 LA dimension(2D): 4.6 cm LAV(MOD-bp) Indexed: 33.9 ml/m2 LAV(MOD-sp2): 79.2 ml LAV(MOD-sp4): 79.9 ml RA A4 area: 17.0 cm2 Time Measurements MV oct time: 0.20 sec Doppler Measurements & Calculations MV E max sandeep: 70.3 cm/sec Lat Peak E' Sandeep: 9.6 cm/sec Med Peak E' Sandeep: 8.5 cm/sec MV A max sandeep: 55.7 cm/sec E/E' lat: 7.4 E/E' med: 8.3 MV E/A: 1.3 Ao V2 max: 119.1 cm/sec LV V1 max: 96.0 cm/sec PA V2 max: 110.1 cm/sec Ao max P.7 mmHg LV V1 max P.7 mmHg TR max snadeep: 220.1 cm/sec TR max P.4 mmHg Interpretation Summary Severely dilated left ventricle. The estimated ejection fraction is 25 %. Stage 2 diastolic dysfunction. Mild imprvement compared to previous. Contrast injection was performed. Ordering Physician: Frank Braden Referring Physician: Bean Vale Performed By: Andreina Diaz, DANICS, RVT
== END ==
PROVIDERS: PCP Family Medicine; Referring Provider Internal Medicine Cardiovascular Disease; Visit Provider Internal Medicine Cardiovascular Disease
DX: I48.0 Paroxysmal atrial fibrillation (principal); I42.8 Other cardiomyopathies
CPT/HCPCS: 93306; Q9957; A4216; C8929

== ENCOUNTER → 2021-01-16 10:02 | Outpatient (CLI) | payer MEDICAID, SELFPAY ==
[2020-11-01 09:14] VITALS: BMI 40.3
--- NOTE | 2021-01-16 10:07 | ECHOD_ITS ---
Reason For Study: CHF Procedure This was a 2D Doppler, Color Flow transthoracic echocardiogram. Exam performed in department. Left Ventricle Moderately dilated left ventricle. The estimated ejection fraction is 37 %. Stage 2 diastolic dysfunction. There is moderate global hypokinesis of the left ventricle. Right Ventricle Mildly dilated right ventricle. Normal systolic function. Atria Normal left atrium. Normal right atrium. Mitral Valve Normal mitral valve. Tricuspid Valve Normal tricuspid valve. Unable to estimate RV systolic pressure due to insufficient tricuspid regurgitant envelope. Aortic Valve Normal aortic valve. Pulmonic Valve Normal pulmonic valve. Great Vessels Normal aortic root. The pulmonary artery is normal size. Normal inferior vena cava. Pericardium/Pleural No pericardial effusion. MMode/2D Measurements & Calculations LVIDd: 6.6 cm IVSd: 0.99 cm Ao root diam: 3.1 cm LVIDs: 5.1 cm LVPWd: 0.99 cm RVDd: 4.2 cm FS: 23.4 % LAV(MOD-bp): 64.7 ml LA A4 area: 19.8 cm2 LA dimension(2D): 4.8 cm LAV(MOD-bp) Indexed: 26.6 ml/m2 LAV(MOD-sp2): 59.7 ml LAV(MOD-sp4): 59.9 ml RA A4 area: 12.2 cm2 Time Measurements MV dec time: 0.18 sec Doppler Measurements & Calculations MV E max sandeep: 72.9 cm/sec Lat Peak E' Sandeep: 9.4 cm/sec Med Peak E' Sandeep: 8.5 cm/sec MV A max sandeep: 48.7 cm/sec E/E' lat: 7.8 E/E' med: 8.6 MV E/A: 1.5 Ao V2 max: 117.5 cm/sec PA V2 max: 97.8 cm/sec Ao max P.5 mmHg Interpretation Summary Moderately dilated left ventricle. The estimated ejection fraction is 37 %. Stage 2 diastolic dysfunction. Compared to previous study, the left ventricular systolic function has improved.. Ordering Physician: Cristina Canas Referring Physician: Bean Vale Performed By: Andreina Diaz RDCS, RVT
== END ==
PROVIDERS: PCP Family Medicine; Visit Provider Physician Assistant Medical
DX: I42.8 Other cardiomyopathies (principal); I50.42 Chronic combined systolic (congestive) and diastolic (congestive) heart failure
CPT/HCPCS: 93306

== ENCOUNTER → 2021-05-03 11:12 | Outpatient (CLI) | payer MEDICAID, SELFPAY ==
[2021-01-18 09:11] VITALS: BMI 40.3
== END ==
PROVIDERS: PCP Family Medicine; Referring Provider Physician Assistant Medical; Visit Provider Physician Assistant Medical
DX: I42.8 Other cardiomyopathies (principal)
CPT/HCPCS: 93308; Q9957; A4216; C8924; J3490

== ENCOUNTER → 2022-06-13 | Outpatient (CLI) | payer MEDICAID, SELFPAY ==
--- NOTE | 2022-06-13 12:59 | ECHOCS_ITS ---
Reason For Study: CARDIOMYOPATHY Procedure This was a 2D Doppler, Color Flow transthoracic echocardiogram. The study was technically difficult. Due to body habitus. Contrast injection was performed. Exam performed in department. Left Ventricle Normal LV size. Mild concentric left ventricular hypertrophy. The estimated ejection fraction is 40 %. There is mild to moderate global hypokinesis of the left ventricle. Right Ventricle Normal RV size. Normal systolic function. Atria Normal left atrium. Normal right atrium. Mitral Valve Mitral valve not well visualized. Tricuspid Valve The tricuspid valve is not well visualized. Aortic Valve The aortic valve is not well visualized. Pericardium/Pleural No pericardial effusion. Medication 22 gauge I.V. with prn adaptor inserted into right arm. Diluted definity 2.0ml given slow IV push to enhance endocardial definition. MMode/2D Measurements & Calculations LVIDd: 5.6 cm IVSd: 1.2 cm Ao root diam: 3.0 cm LVIDs: 4.0 cm LVPWd: 1.2 cm RVDd: 3.5 cm FS: 29.0 % LAV(MOD-bp): 57.0 ml LVAd ap4: 43.3 cm2 LVAd ap2: 41.3 cm2 LAV(MOD-bp) Indexed: 23.4 ml/m2 LVLd ap4: 9.7 cm LVLd ap2: 9.7 cm LAV(MOD-sp2): 54.9 ml EDV(MOD-sp4): 161.3 ml EDV(MOD-sp2): 148.0 ml LAV(MOD-sp4): 54.6 ml EDV(sp4-el): 164.7 ml EDV(sp2-el): 149.8 ml LVAs ap4: 27.3 cm2 LVAs ap2: 25.1 cm2 LVLs ap4: 8.8 cm LVLs ap2: 8.7 cm ESV(MOD-sp4): 71.5 ml ESV(MOD-sp2): 59.7 ml ESV(sp4-el): 72.3 ml ESV(sp2-el): 61.5 ml EF(MOD-sp4): 55.7 % EF(MOD-sp2): 59.7 % EF(sp4-el): 56.1 % SV(MOD-sp4): 89.8 ml SV(MOD-sp2): 88.4 ml SV(sp4-el): 92.3 ml LA dimension(2D): 4.8 cm LA A4 area: 19.4 cm2 RA A4 area: 14.4 cm2 Doppler Measurements & Calculations MV E max sandeep: 65.0 cm/sec Lat Peak E' Sandeep: 8.9 cm/sec Med Peak E' Sandeep: 7.4 cm/sec MV A max sandeep: 58.8 cm/sec E/E' lat: 7.3 E/E' med: 8.7 MV E/A: 1.1 Ao V2 max: 125.1 cm/sec LV V1 max: 67.9 cm/sec PA V2 max: 106.9 cm/sec Ao max P.3 mmHg LV V1 max P.8 mmHg Ao V2 mean: 88.5 cm/sec LV V1 mean P.1 mmHg Ao mean P.6 mmHg LV V1 mean: 50.4 cm/sec Ao V2 VTI: 25.0 cm LV V1 VTI: 13.7 cm ECHO/Echo Complete W/ Contrast Interpretation Summary Normal LV size. The estimated ejection fraction is 40 %. There is mild to moderate global hypokinesis of the left ventricle. Mild concentric left ventricular hypertrophy. Contrast injection was performed. The study was technically difficult. Ordering Physician: Jyoti Franklin Referring Physician: Bean Vale Performed By: Andreina Diaz, OG, RVT
== END | disposition home or self-care (01) ==
LOC: CVS 12:58
PROVIDERS: PCP Family Medicine; Referring Provider Nurse Practitioner Gerontology; Visit Provider Nurse Practitioner Gerontology
DX: I42.8 Other cardiomyopathies (principal)
CPT/HCPCS: 93306; Q9957; A4216; C8929

== ENCOUNTER → 2024-02-03 | Outpatient (CLI) | payer MEDICAID, SELFPAY ==
--- NOTE | 2024-02-03 10:52 | ECHOL_ITS ---
Reason For Study: CARDIOMYOPATHY Procedure This was a limited 2D transthoracic echocardiogram. Myocardial strain analysis was performed in this exam to aid in the assessment of cardiac function. Exam performed in department. Left Ventricle Normal LV size. Mild global left ventricular systolic dysfunction. The estimated ejection fraction is 48 %. There is mild global hypokinesis of the left ventricle. Right Ventricle Normal RV size. Normal systolic function. Atria Normal left atrium. Normal right atrium. Mitral Valve Normal mitral valve. Tricuspid Valve Normal tricuspid valve. Aortic Valve Trisinus/trileaflet aortic valve. Pulmonic Valve Normal pulmonic valve. Great Vessels Normal aortic root. The pulmonary artery is normal size. Pericardium/Pleural No pericardial effusion. MMode/2D Measurements & Calculations LVIDd: 6.2 cm IVSd: 0.91 cm LVOT diam: 2.2 cm LVIDs: 3.9 cm LVPWd: 0.96 cm LVOT area: 3.8 cm2 RVDd: 3.5 cm FS: 36.8 % Ao root diam: 3.5 cm LAV(MOD-bp): 53.0 ml LVAd ap4: 33.6 cm2 LAV(MOD-bp) Indexed: 23.5 ml/m2 LVLd ap4: 8.2 cm LAV(MOD-sp2): 53.8 ml EDV(MOD-sp4): 111.7 ml LAV(MOD-sp4): 51.5 ml EDV(sp4-el): 116.8 ml LVAs ap4: 22.4 cm2 LVLs ap4: 7.3 cm ESV(MOD-sp4): 58.6 ml ESV(sp4-el): 58.5 ml EF(MOD-sp4): 47.5 % EF(sp4-el): 50.0 % LVAd ap2: 37.0 cm2 SV(MOD-sp4): 53.0 ml SV(MOD-sp2): 63.3 ml LVLd ap2: 8.7 cm EDV(MOD-sp2): 130.5 ml EDV(sp2-el): 132.8 ml LVAs ap2: 25.1 cm2 LVLs ap2: 7.8 cm ESV(MOD-sp2): 67.2 ml ESV(sp2-el): 69.1 ml EF(MOD-sp2): 48.5 % SV(sp4-el): 58.4 ml LA dimension(2D): 5.1 cm LA A4 area: 19.2 cm2 RA A4 area: 15.8 cm2 TAPSE: 2.0 cm Time Measurements MV dec time: 0.20 sec Doppler Measurements & Calculations MV E max sandeep: 78.5 cm/sec Lat Peak E' Sandeep: 8.6 cm/sec Med Peak E' Sandeep: 8.7 cm/sec MV A max sandeep: 54.3 cm/sec E/E' lat: 9.1 E/E' med: 9.0 MV E/A: 1.4 Ao V2 max: 124.6 cm/sec LV V1 max: 92.2 cm/sec MV dec slope: 396.5 cm/sec2 Ao max P.2 mmHg LV V1 max P.4 mmHg Ao V2 mean: 85.9 cm/sec LV V1 mean P.0 mmHg Ao mean P.4 mmHg LV V1 mean: 66.9 cm/sec Ao V2 VTI: 24.5 cm LV V1 VTI: 18.1 cm AV (velocity ratio): 0.74 NIKIA(I,D): 2.8 cm2 NIKIA(V,D): 2.8 cm2 SV(LVOT): 68.7 ml PA V2 max: 95.4 cm/sec PA max PG (full): 1.8 mmHg ECHO/Echo, Limited Study Interpretation Summary Normal LV size. Mild global left ventricular systolic dysfunction. The estimated ejection fraction is 48 %. No thrombus noted. The global longitudinal strain = -12.7% (abnormal). Compared to previous study, the left ventricular systolic function has improved.. Ordering Physician: Jyoti Franklin Referring Physician: Jyoti Franklin Performed By: Kesha Gaona RDCS
== END | disposition home or self-care (01) ==
LOC: CVS 10:52
PROVIDERS: PCP Family Medicine; Referring Provider Nurse Practitioner Gerontology; Visit Provider Nurse Practitioner Gerontology
DX: I42.8 Other cardiomyopathies (principal)
CPT/HCPCS: 93308

== ENCOUNTER → 2025-08-15 | Outpatient (CLI) | payer MEDICAID, SELFPAY ==
[2025-08-15 12:51] LABS: Hematocrit 40.2 % (40-54); Hemoglobin 13.6 g/dL (13.0-16.5); Immature Granulocytes Count 0.060 X10^3/uL (0.0-0.0); Mean Corp Hgb Conc 33.8 g/dL (32-36); Mean Corpuscular Volume 92.6 fL (80-94); Mean Platelet Vol. 11.8 fl (6.2-12.0); NRBC Flagged by Analyzer 0 % (0-5); Platelet Count 206 K/mm3 (150-450); RBC Distribution Width CV 11.9 % (11.6-14.6); RBC Distribution Width SD 40.3 fl (35.1-43.9); Red Blood Count 4.34 M/mm3 (4.6-6.2); White Blood Count 9.2 K/mm3 (4.4-11.0)
[2025-08-15 13:14] LABS: Anion Gap 13 (5-15); BUN 8 mg/dL (4-19); BUN/Creat Ratio 10.6 RATIO (10-20); Calcium,Total 8.7 mg/dL (7.6-11.0); Carbon Dioxide 22.1 mmol/L (21.0-32.0); Chloride 103 mmol/L (98-108); Glucose 80 mg/dL (70-99); Potassium 4.2 mmol/L (3.3-5.1); Pro- Brain NATRIURETIC PEPTIDE < 36 pg/mL (<=450)
== END | disposition home or self-care (01) ==
LOC: LAB 11:43
PROVIDERS: PCP Family Medicine; Referring Provider Student in an Organized Health Care Education/Training Program; Visit Provider Student in an Organized Health Care Education/Training Program
DX: R06.00 Dyspnea, unspecified (principal); R07.9 Chest pain, unspecified
CPT/HCPCS: 36415; 80048; 83880; 85025